=== PATIENT | male | born 1955 | race Caucasian/White ===

== ENCOUNTER 2016-12-11 11:41 | Emergency (ER) | payer OTHER ==
[2016-12-11] MEDS ORDERED: hydrALAZINE HCL 20 MG/ML 1 ML VIAL IVP STA (12:18)
[2016-12-11] MEDS ORDERED: SODIUM CHLORIDE 0.9% 1,000 ML IV STA (12:18)
--- NOTE | 2016-12-11 12:20 | ED ---
General Adult HPI - General Chief complaint: Arrhythmia/Palpitations Stated complaint: HEAD, BLOOD PRESSURE Time Seen by Provider: 12/11/16 12:08 Source: patient, RN notes reviewed Mode of arrival: ambulatory Limitations: no limitations - History of Present Illness Initial comments: Patient is a 61-year-old male who presents emergency room today with a chief complaint of palpitations and headache with elevated blood pressure. Patient does admit that he's had these symptoms on and off over the last 6 months. His and following up with family doctor and rides supervisor. Started on blood pressure medication of atenolol 50 mg that he takes at night. States he did take it last night. States he woke up approximately 2 AM with feeling palpitations in his upper chest and neck area. States he was able to fall back asleep but would wake up multiple times throughout the night with similar symptoms. States woke up this morning at bedside states that his face was beet red and could see the palpitations in his cheek. Patient does admit that symptoms slightly improved at this time. Does admit to a "dull" type headache to the front of his head. States similar to headaches that he's had off-and-on with this not feeling palpitations at this time. He denies any other complaints or symptoms currently. Patient denies any recent fever, chills, shortness of breath, back pain, abdominal pain, nausea or vomiting, numbness or tingling, dysuria or hematuria, constipation or diarrhea, visual changes, or any other complaints. - Related Data Home Medications Medication Instructions Recorded Confirmed Atenolol [Tenormin] 50 mg PO HS 12/11/16 12/11/16 Biotin 5 mg PO 12/11/16 12/11/16 Cod Liver Oil 1 cap PO HS 12/11/16 12/11/16 Garlic 1 tab PO HS 12/11/16 12/11/16 Multivitamin [Men's Multi-Vitamin] 1 tab PO 12/11/16 12/11/16 Vitamin C 600 mg PO 12/11/16 12/11/16 Allergies Allergy/AdvReac Type Severity Reaction Status Date / Time No Known Allergies Allergy Verified 12/11/16 13:16 Review of Systems ROS Statement: Those systems with pertinent positive or pertinent negative responses have been documented in the HPI. ROS Other: All systems not noted in ROS Statement are negative. Past Medical History Past Medical History: Hypertension History of Any Multi-Drug Resistant Organisms: None Reported Past Surgical History: Orthopedic Surgery Additional Past Surgical History / Comment(s): rt knee Past Psychological History: No Psychological Hx Reported Smoking Status: Never smoker Past Alcohol Use History: Daily Past Drug Use History: None Reported General Exam - General Exam Comments Initial Comments: General: The patient is awake and alert, in no distress, and does not appear acutely ill. Eye: Pupils are equal, round and reactive to light, extra-ocular movements are intact. No nystagmus. There is normal conjunctiva bilaterally. No signs of icterus. Ears, nose, mouth and throat: There are moist mucous membranes and no oral lesions. Neck: The neck is supple, there is no tenderness or JVD. Cardiovascular: There is a regular rate and rhythm. No murmur, rub or gallop is appreciated. Respiratory: Lungs are clear to auscultation, respirations are non-labored, breath sounds are equal. No wheezes, stridor, rales, or rhonchi. Gastrointestinal: Soft, non-distended, non-tender abdomen without masses or organomegaly noted. There is no rebound or guarding present. No CVA tenderness. Bowel sounds are unremarkable. Musculoskeletal: Normal ROM, no tenderness. Strength 5/5. Sensation intact. Pulses equal bilaterally 2+. Neurological: A&O x 3. CN II-XII intact, There are no obvious motor or sensory deficits. Coordination appears grossly intact. Speech is normal. Skin: Skin is warm and dry and no rashes or lesions are noted. Psychiatric: Cooperative, appropriate mood & affect, normal judgment. Limitations: no limitations Course Vital Signs 12/11/16 12/11/16 12/11/16 11:57 12:40 13:07 Temperature 98.0 F Pulse Rate 67 63 64 Respiratory 20 18 16 Rate Blood Pressure 181/104 147/81 136/67 O2 Sat by Pulse 98 98 98 Oximetry EKG Findings - EKG Comments: EKG Findings:: EKG performed at 1213: Shows sinus bradycardia at 58 bpm. SD interval 184. QRS 104. QT/QTc 448/439. No acute ST changes. Medical Decision Making - Medical Decision Making Case discussed in detail with attending physician Dr. Hill. Patient labs reviewed and are unremarkable. Patient reexamined at this time shows no signs of distress. Patient's blood pressure improved after hydralazine here in emergency room. Patient asymptomatic at this time. States feels well to be discharged home. Patient advised follow-up with his family doctor and rides supervisor tomorrow. Advised return to emergency room if any symptoms increase or worsen or for any other concerns. - Lab Data Result diagrams: 12/11/16 12:36 12/11/16 12:36 Lab Results 12/11/16 12/11/16 12/11/16 Range/Units 12:36 12:36 12:36 WBC 5.6 (3.8-10.6) k/uL RBC 4.86 (4.30-5.90) m/uL Hgb 14.5 (13.0-17.5) gm/dL Hct 44.2 (39.0-53.0) % MCV 90.9 (80.0-100.0) fL MCH 29.8 (25.0-35.0) pg MCHC 32.8 (31.0-37.0) g/dL RDW 12.6 (11.5-15.5) % Plt Count 173 (150-450) k/uL Neutrophils % 56 % Lymphocytes % 33 % Monocytes % 5 % Eosinophils % 3 % Basophils % 1 % Neutrophils # 3.2 (1.3-7.7) k/uL Lymphocytes # 1.9 (1.0-4.8) k/uL Monocytes # 0.3 (0-1.0) k/uL Eosinophils # 0.2 (0-0.7) k/uL Basophils # 0.0 (0-0.2) k/uL PT (9.0-12.0) sec INR (<1.1) APTT (22.0-30.0) sec Sodium 140 (137-145) mmol/L Potassium 4.5 (3.5-5.1) mmol/L Chloride 105 (98-107) mmol/L Carbon Dioxide 25 (22-30) mmol/L Anion Gap 10 mmol/L BUN 15 (9-20) mg/dL Creatinine 0.75 (0.66-1.25) mg/dL Est GFR (MDRD) Af Amer >60 (>60 ml/min/1.73 sqM) Est GFR (MDRD) Non-Af >60 (>60 ml/min/1.73 sqM) Glucose 93 (74-99) mg/dL Calcium 8.6 (8.4-10.2) mg/dL Magnesium 1.9 (1.6-2.3) mg/dL Total Bilirubin 0.6 (0.2-1.3) mg/dL AST 22 (17-59) U/L ALT 39 (21-72) U/L Alkaline Phosphatase 95 (38-126) U/L Total Creatine Kinase 89 (55-170) U/L CK-MB (CK-2) 1.2 (0.0-2.4) ng/mL CK-MB (CK-2) Rel Index 1.3 Troponin I <0.012 (0.000-0.034) ng/mL Total Protein 7.3 (6.3-8.2) g/dL Albumin 4.0 (3.5-5.0) g/dL 12/11/16 Range/Units 12:36 WBC (3.8-10.6) k/uL RBC (4.30-5.90) m/uL Hgb (13.0-17.5) gm/dL Hct (39.0-53.0) % MCV (80.0-100.0) fL MCH (25.0-35.0) pg MCHC (31.0-37.0) g/dL RDW (11.5-15.5) % Plt Count (150-450) k/uL Neutrophils % % Lymphocytes % % Monocytes % % Eosinophils % % Basophils % % Neutrophils # (1.3-7.7) k/uL Lymphocytes # (1.0-4.8) k/uL Monocytes # (0-1.0) k/uL Eosinophils # (0-0.7) k/uL Basophils # (0-0.2) k/uL PT 10.6 (9.0-12.0) sec INR 1.0 (<1.1) APTT 23.9 (22.0-30.0) sec Sodium (137-145) mmol/L Potassium (3.5-5.1) mmol/L Chloride (98-107) mmol/L Carbon Dioxide (22-30) mmol/L Anion Gap mmol/L BUN (9-20) mg/dL Creatinine (0.66-1.25) mg/dL Est GFR (MDRD) Af Amer (>60 ml/min/1.73 sqM) Est GFR (MDRD) Non-Af (>60 ml/min/1.73 sqM) Glucose (74-99) mg/dL Calcium (8.4-10.2) mg/dL Magnesium (1.6-2.3) mg/dL Total Bilirubin (0.2-1.3) mg/dL AST (17-59) U/L ALT (21-72) U/L Alkaline Phosphatase (38-126) U/L Total Creatine Kinase (55-170) U/L CK-MB (CK-2) (0.0-2.4) ng/mL CK-MB (CK-2) Rel Index Troponin I (0.000-0.034) ng/mL Total Protein (6.3-8.2) g/dL Albumin (3.5-5.0) g/dL Disposition Clinical Impression: HTN (hypertension), Palpitations Disposition: HOME SELF-CARE Condition: Good Instructions: Palpitations (ED) Additional Instructions: Please follow-up family doctor and rides supervisor tomorrow as discussed. Please return to emergency room if any symptoms increase or worsen or for any other concerns. Time of Disposition: 13:46
--- NOTE | 2016-12-11 12:49 | XR ---
EXAMINATION TYPE: XR chest 2V DATE OF EXAM: 12/11/2016 12:46 PM HISTORY: Chest Pain. REFERENCE: NONE. FINDINGS: There are mild senescent changes throughout the lungs. There is no evidence of pneumonia or edema. The heart is not enlarged. Pleural spaces are clear. Note is made of degenerative changes within the spine. IMPRESSION: NO ACUTE INTRATHORACIC ABNORMALITY.
[2016-12-11 12:53] LABS: Basophils % (A) 1 %; CH 30.7; CHCM 33.9; Eosinophils # (A) 0.2 k/uL (0-0.7); Eosinophils % (A) 3 %; HCT 44.2 % (39.0-53.0); HDW 2.22; HGB 14.5 gm/dL (13.0-17.5); Luc # (Auto) 0.13; Luc % (Auto) 2; Lymphocytes # (A) 1.9 k/uL (1.0-4.8); Lymphocytes % (A) 33 %; MCH 29.8 pg (25.0-35.0); MCHC 32.8 g/dL (31.0-37.0); MCV 90.9 fL (80.0-100.0); Mean Platelet Volume 7.7; Monocytes # (A) 0.3 k/uL (0-1.0); Monocytes % (A) 5 %; Neutrophils # (A) 3.2 k/uL (1.3-7.7); Neutrophils % (A) 56 %; RBC 4.86 m/uL (4.30-5.90); RDW 12.6 % (11.5-15.5); WBC 5.6 k/uL (3.8-10.6); WBC (Perox) 5.55
[2016-12-11 13:01] LABS: ALT 39 U/L (21-72); AST 22 U/L (17-59); Alkaline Phosphatase 95 U/L (38-126); Anion Gap 10 mmol/L; Blood Urea Nitrogen 15 mg/dL (9-20); Calcium 8.6 mg/dL (8.4-10.2); Carbon Dioxide 25 mmol/L (22-30); Chloride 105 mmol/L (98-107); Glucose 93 mg/dL (74-99); Magnesium 1.9 mg/dL (1.6-2.3); Non-African American GFR(MDRD) >60 (>60 ml/min/1.73 sqM); Potassium 4.5 mmol/L (3.5-5.1); Sodium 140 mmol/L (137-145); Total Bilirubin 0.6 mg/dL (0.2-1.3); Total Protein 7.3 g/dL (6.3-8.2)
[2016-12-11 13:05] LABS: Partial Thromboplastin Time 23.9 sec (22.0-30.0); Prothrombin Time 10.6 sec (9.0-12.0)
[2016-12-11 13:08] VITALS: BP 136/67; PULSE 64; RESP 16
[2016-12-11 13:20] LABS: Creatine Kinase 89 U/L (55-170)
[2016-12-11 13:33] LABS: Creatine Kinase MB 1.2 ng/mL (0.0-2.4); Troponin I <0.012 ng/mL (0.000-0.034)
[2016-12-11 14:00] VITALS: TEMP 98
== END 2016-12-11 13:59 | disposition home or self-care (01) ==
LOC: EC 11:41
DX: I10 Essential (primary) hypertension (principal); R00.2 Palpitations; Z79.899 Other long term (current) drug therapy
CPT/HCPCS: 36415; 93005; 80053; 82550; 82553; 83735; 84484; 85025; 85610; 85730; 71020; 99285; 96374; 96361; J0360

== ENCOUNTER 2016-12-12 16:57 | Observation (INO) | payer OTHER ==
[2016-12-12] MEDS ORDERED: LORazepam 2 MG/ML SYRINGE IV PRN ×3 (18:50)
[2016-12-12] MEDS: SODIUM CHLORIDE 0.9% 1,000 ML IV SCH (18:59)
[2016-12-12 19:13] LABS: Basophils # (A) 0.1 k/uL (0-0.2); Basophils % (A) 1 %; CH 30.5; CHCM 33.2; Eosinophils # (A) 0.2 k/uL (0-0.7); Eosinophils % (A) 3 %; HCT 44.6 % (39.0-53.0); HDW 2.19; HGB 14.2 gm/dL (13.0-17.5); Luc # (Auto) 0.17; Luc % (Auto) 3; Lymphocytes # (A) 2.3 k/uL (1.0-4.8); Lymphocytes % (A) 36 %; MCH 29.3 pg (25.0-35.0); MCHC 31.8 g/dL (31.0-37.0); Monocytes # (A) 0.3 k/uL (0-1.0); Monocytes % (A) 4 %; Neutrophils # (A) 3.5 k/uL (1.3-7.7); Neutrophils % (A) 54 %; RBC 4.85 m/uL (4.30-5.90); RDW 12.8 % (11.5-15.5); WBC 6.5 k/uL (3.8-10.6); WBC (Perox) 6.65
[2016-12-12 19:39] LABS: Anion Gap 12 mmol/L; Blood Urea Nitrogen 14 mg/dL (9-20); Calcium 9.3 mg/dL (8.4-10.2); Carbon Dioxide 26 mmol/L (22-30); Chloride 105 mmol/L (98-107); Glucose 94 mg/dL (74-99); Magnesium 2.1 mg/dL (1.6-2.3); Non-African American GFR(MDRD) >60 (>60 ml/min/1.73 sqM); Potassium 4.3 mmol/L (3.5-5.1); Sodium 143 mmol/L (137-145)
[2016-12-12] MEDS: MULTIVITAMINS, THERA 1 EACH TAB PO SCH (20:10)
[2016-12-12] MEDS ORDERED: ATENOLOL 50 MG TAB PO SCH (21:00)
[2016-12-13 06:03] LABS: Basophils % (A) 1 %; CH 30.4; CHCM 33.3; Eosinophils # (A) 0.2 k/uL (0-0.7); Eosinophils % (A) 4 %; HCT 41.7 % (39.0-53.0); HGB 13.6 gm/dL (13.0-17.5); Luc # (Auto) 0.15; Luc % (Auto) 3; Lymphocytes # (A) 1.9 k/uL (1.0-4.8); Lymphocytes % (A) 33 %; MCH 29.9 pg (25.0-35.0); MCHC 32.6 g/dL (31.0-37.0); MCV 91.5 fL (80.0-100.0); Mean Platelet Volume 7.3; Monocytes # (A) 0.4 k/uL (0-1.0); Monocytes % (A) 7 %; Neutrophils % (A) 53 %; RBC 4.56 m/uL (4.30-5.90); RDW 12.7 % (11.5-15.5); WBC 5.6 k/uL (3.8-10.6)
[2016-12-13 06:21] LABS: Anion Gap 8 mmol/L; Blood Urea Nitrogen 12 mg/dL (9-20); Calcium 8.8 mg/dL (8.4-10.2); Carbon Dioxide 25 mmol/L (22-30); Chloride 107 mmol/L (98-107); Glucose 98 mg/dL (74-99); Non-African American GFR(MDRD) >60 (>60 ml/min/1.73 sqM); Potassium 4.3 mmol/L (3.5-5.1); Sodium 140 mmol/L (137-145)
[2016-12-13] MEDS: SODIUM CHLORIDE 0.9% 1,000 ML IV SCH (09:41)
--- NOTE | 2016-12-13 10:09 | ECHOF ---
Referral Reason:heart palpatations MEASUREMENTS -------- HEIGHT: 198.1 cm WEIGHT: 131.1 kg BP: 129/71 RVIDd: 3.7 cm (< 3.3) IVSd: 1.2 cm (0.6 - 1.1) LVIDd: 5.2 cm (3.9 - 5.3) LVPWd: 1.2 cm (0.6 - 1.1) IVSs: 1.7 cm LVIDs: 3.7 cm LVPWs: 1.7 cm LA Diam: 4.1 cm (2.7 - 3.8) LAESV Index (A-L): 26.20 ml/m Ao Diam: 3.1 cm (2.0 - 3.7) AV Cusp: 2.4 cm (1.5 - 2.6) LA Diam: 3.7 cm (2.7 - 3.8) MV EXCURSION: 21.085 mm (> 18.000) MV EF SLOPE: 99 mm/s (70 - 150) EPSS: 0.8 cm MV E Tejas: 0.67 m/s MV DecT: 191 ms MV A [place]: 0.88 m/s MV E/A Ratio: 0.76 RAP: 5.00 mmHg RVSP: 18.84 mmHg FINDINGS -------- Resting bradycardia (HR<60bpm). This was a technically good study. There is borderline concentric left ventricular hypertrophy. Overall left ventricular systolic function is normal with, an EF between 55 - 60 %. The right ventricle is normal in size. Normal LA size by volume 22+/-6 ml/m2. The right atrium is normal in size. Aortic valve is trileaflet and is mildly thickened. The mitral valve leaflets are mildly thickened. Mild mitral annular calcification present. There is trace mitral regurgitation. Trace tricuspid regurgitation present. Right ventricular systolic pressure is normal at < 35 mmHg. Trace/mild (physiologic) pulmonic regurgitation. The aortic root size is normal. Normal inferior vena cava with normal inspiratory collapse consistent with estimated right atrial pressure of 5 mmHg. There is no pericardial effusion. CONCLUSIONS -------- 1. Resting bradycardia (HR<60bpm). 2. Mild mitral annular calcification present. 3. There is trace mitral regurgitation. 4. Trace tricuspid regurgitation present. 5. Right ventricular systolic pressure is normal at < 35 mmHg. 6. Trace/mild (physiologic) pulmonic regurgitation. 7. The aortic root size is normal. 8. Normal inferior vena cava with normal inspiratory collapse consistent with estimated right atrial pressure of 5 mmHg. 9. There is no pericardial effusion. 10. This was a technically good study. 11. There is borderline concentric left ventricular hypertrophy. 12. Overall left ventricular systolic function is normal with, an EF between 55 - 60 %. 13. The right ventricle is normal in size. 14. Normal LA size by volume 22+/-6 ml/m2. 15. The right atrium is normal in size. 16. Aortic valve is trileaflet and is mildly thickened. 17. The mitral valve leaflets are mildly thickened. CONTENT COORDINATOR: Ezequiel Velasquez RDCS
[2016-12-13] MEDS: THIAMINE 100 MG TAB PO SCH (11:45)
[2016-12-13] MEDS: FOLIC ACID 1 MG TAB PO SCH (11:45)
--- NOTE | 2016-12-13 12:39 | P.CRDCN ---
History of Present Illness Consult date: 12/13/16 Requesting physician: Bernice Regan Reason for Consult (text): Palpitations Consult reason: hypertension Chief complaint: Palpitations and hypertension History of present illness: This is a pleasant 61-year-old gentleman with history of hypertension , who presents to the hospital with symptoms of palpitations with associated headache and high blood pressure. According to the patient, he's been experiencing intermittent palpitations and fluctuating blood pressure for over 6 months now. He was initially started on lisinopril by his primary care doctor , this was changed recently to atenolol by Dr. Oconnell. In spite of that, patient continued to have intermittent significantly elevated blood pressure. He states that he wakes up in the middle of the night with palpitations and pounding in his chest. Usually during the day he doesn't notice it at all, but almost every night he wakes up because of palpitations. He had a recent stress echocardiographic study done along with a regular echo, and event monitor at the office. does have history of hypertension, no hyperlipidemia, no diabetes, he's a nonsmoker, he does drink 4-5 glasses of wine a night. EKG on arrival here showed normal sinus rhythm with no significant changes. Repeat EKG performed this morning showed a sinus bradycardia with no acute changes. Rhythm strips show normal sinus rhythm with occasional PACs. No acute changes were noted. Chest x-ray does not reveal any acute intrathoracic abnormality. Laboratory data reviewed, WBC 5.6, hemoglobin 13.6, sodium 140, potassium 4.3, BUN 12, creatinine 0.7. Troponin less than 0.012. TSH 1.9. Blood pressure this morning 143/70. Heart rate in the 50s. Past Medical History Past Medical History: Hypertension History of Any Multi-Drug Resistant Organisms: None Reported Past Surgical History: Orthopedic Surgery Additional Past Surgical History / Comment(s): rt knee in 1976; coloscopy 2013 Past Anesthesia/Blood Transfusion Reactions: No Reported Reaction Past Psychological History: No Psychological Hx Reported Smoking Status: Never smoker Past Alcohol Use History: Daily Past Drug Use History: None Reported - Past Family History Mother Additional Family Medical History / Comment(s): cdiff, breast cancer, CABG 1999 , septic shock, Father Family Medical History: AFIB, AICD/Pacemaker Additional Family Medical History / Comment(s): mac degeneration Medications and Allergies Home Medications Medication Instructions Recorded Confirmed Type Atenolol [Tenormin] 50 mg PO HS 12/11/16 12/12/16 History Biotin 5 mg PO 12/11/16 12/12/16 History Cod Liver Oil 1 cap PO 12/11/16 12/12/16 History Garlic 1 tab PO HS 12/11/16 12/12/16 History Multivitamin [Men's Multi-Vitamin] 1 tab PO 12/11/16 12/12/16 History Vitamin C 600 mg PO 12/11/16 12/12/16 History Allergies Allergy/AdvReac Type Severity Reaction Status Date / Time No Known Allergies Allergy Verified 12/12/16 19:04 Physical Exam Vitals: Vital Signs Temp Pulse Resp BP Pulse Ox 12/13/16 11:30 97.5 F L 50 L 14 143/70 96 12/13/16 08:35 48 L 14 12/13/16 07:33 97.4 F L 48 L 14 136/68 97 12/13/16 04:00 52 L 18 129/71 97 12/13/16 00:00 54 L 18 120/68 99 12/12/16 20:00 97.7 F 53 L 18 131/68 97 12/12/16 18:52 97.8 F 55 L 18 144/77 97 Intake and Output 12/12/16 12/13/16 12/13/16 22:59 06:59 14:59 Intake Total 650 Balance 650 Intake: Intake, IV Titration 450 Amount Sodium Chloride 0.9% 1, 450 000 ml @ 75 mls/hr IV . [id number] [facility] Rx#:[id number] Oral 200 Other: # Voids 1 1 # Bowel Movements 0 Weight 131.4 kg 129.8 kg 131 kg Patient Weight 12/14/16 06:59 Weight 131 kg PHYSICAL EXAMINATION: HEENT: Head is atraumatic, normocephalic. Pupils equal, round. Neck is supple. There is no elevated jugular venous pressure. HEART EXAMINATION: Heart S1, S2 normal. No murmur or gallop heard. CHEST EXAMINATION: Lungs are clear to auscultation and precussion. No chest wall tenderness is noted on palpation or with deep breathing. ABDOMEN: Soft, nontender. Bowel sounds are heard. No organomegaly noted. EXTREMITIES: 2+ peripheral pulses with no evidence of peripheral edema and no calf tenderness noted. NEUROLOGIC patient is awake, alert and oriented -3. . Results 12/13/16 05:41 12/13/16 05:41 CBC 12/12/16 12/13/16 Range/Units 18:24 05:41 WBC 6.5 5.6 (3.8-10.6) k/uL RBC 4.85 4.56 (4.30-5.90) m/uL Hgb 14.2 13.6 (13.0-17.5) gm/dL Hct 44.6 41.7 (39.0-53.0) % Plt Count 179 164 (150-450) k/uL Comprehensive Metabolic Panel 12/12/16 12/13/16 Range/Units 18:24 05:41 Sodium 143 140 (137-145) mmol/L Potassium 4.3 4.3 (3.5-5.1) mmol/L Chloride 105 107 (98-107) mmol/L Carbon Dioxide 26 25 (22-30) mmol/L BUN 14 12 (9-20) mg/dL Creatinine 0.80 0.70 (0.66-1.25) mg/dL Glucose 94 98 (74-99) mg/dL Calcium 9.3 8.8 (8.4-10.2) mg/dL Current Medications Generic Name Dose Route Start Last Admin Trade Name Freq PRN Reason Stop Dose Admin Atenolol 50 mg 12/12/16 21:00 12/12/16 20:10 Tenormin PO 50 mg HS BAN Administration Folic Acid 1 mg 12/13/16 12:00 12/13/16 11:45 Folic Acid PO Not Given DAILY@1200 BAN Lorazepam 1 mg 12/12/16 18:50 Ativan IV Q2HR PRN CIWA 8 or 9 Lorazepam 1 mg 12/12/16 18:50 Ativan IV Q1HR PRN CIWA 10 to 15 Lorazepam 2 mg 12/12/16 18:50 Ativan IV Q1HR PRN CIWA 16 or higher Multivitamins 1 each 12/12/16 21:00 12/12/16 20:10 Theragran PO 1 each HS BAN Administration Thiamine HCl 100 mg 12/13/16 12:00 12/13/16 11:45 Vitamin B-1 PO Not Given DAILY@1200 BAN Intake and Output 12/12/16 12/13/16 12/13/16 22:59 06:59 14:59 Intake Total 650 Balance 650 Intake: Intake, IV Titration 450 Amount Sodium Chloride 0.9% 1, 450 000 ml @ 75 mls/hr IV . [id number] BAN Rx#:[id number] Oral 200 Other: # Voids 1 1 # Bowel Movements 0 Weight 131.4 kg 129.8 kg 131 kg Patient Weight 12/14/16 06:59 Weight 131 kg 12/13/16 05:41 12/13/16 05:41 EKG Interpretations (text) EKG shows sinus rhythm this bradycardia with no acute changes. Assessment and Plan Plan: Assessment and plan #1 symptoms of palpitations with flushing sensation and elevated blood pressure. EKG shows sinus bradycardia with occasional PACs. Blood pressure 143 /70. Patient did have recent stress echocardiographic study along with echo and event monitor in the office. #2 hypertension, on atenolol at home. Plan We will obtain report of echo, stress echo, and event monitor from the office done recently. Optimize blood pressure control. Further recommendations to follow. DNP note has been reviewed, I agree with a documented findings and plan of care. Patient was seen and examined.
[2016-12-13 16:57] VITALS: RESP 18
--- NOTE | 2016-12-13 17:34 | HP ---
DATE OF ADMISSION: 12/12/2016 Patient is a 61-year-old pleasant gentleman who came in with complaints of palpitations, headache and elevated blood pressure. Patient's symptoms lasted for 6 hour on Monday ton, and patient's symptoms resolved. Patient has had similar problems in the past. Patient had an event monitor which was discontinued recently. Cardiology is getting in touch with Dr. Reny Mckee's clinic to see if there are any significant events on the event monitor. Patient denied any chest pain. Patient denied diaphoresis, nausea, vomiting. Patient denied any fever or chills. Echocardiogram was done which was negative. Stress test results are to be obtained from Dr. Reny Mckee's clinic. Patient is on atenolol. Patient had similar problems in the past. EKG shows normal sinus rhythm with occasional sinus bradycardia and occasional PACs. Patient apparently had some events of these palpitations when he was on the event monitor. TSH and T4 are essentially within normal limits. REVIEW OF SYSTEMS: CONSTITUTIONAL: No fever, no malaise, no fatigue. HEENT: No recent visual problems or hearing problems. Denied any sore throat. CARDIOVASCULAR: As described in HPI. PULMONARY: No shortness of breath, no cough, no hemoptysis. GASTROINTESTINAL: No diarrhea, no nausea, no vomiting, no abdominal pain. Normoactive bowel sounds. NEUROLOGICAL: No headaches, no weakness, no numbness. HEMATOLOGICAL: Denies any bleeding or petechiae. GENITOURINARY: Denies any burning micturition, frequency, or urgency. MUSCULOSKELETAL/RHEUMATOLOGICAL: Denies any joint pain, swelling, or any muscle pain. ENDOCRINE: Denies any polyuria or polydipsia. The rest of the 14 point review of systems is negative. PAST MEDICAL HISTORY: 1. Hypertension. 2. Orthopedic surgery in the past. SOCIAL HISTORY: Denied any smoking, alcohol abuse or any drug abuse. FAMILY HISTORY: Mother had C difficile and breast cancer, CABG in 1999, septic shock. Father had atrial fibrillation, AICD and pacemaker, macular degeneration. HOME MEDICATIONS: 1. Atenolol. 2. Biotin. 3. Cod liver oil. 4. Garlic. 5. Multivitamin. 6. Vitamin C. ALLERGIES: NO KNOWN DRUG ALLERGIES. PHYSICAL EXAMINATION: VITAL SIGNS: Temperature 97.5, pulse of 50, respiratory rate of 14. Blood pressure is 143/70. Saturating at 96% on room air. GENERAL: The patient is alert and oriented x3, not in any acute distress. Well developed, well nourished. HEENT: Pupils are round and equally reacting to light. EOMI. No scleral icterus. No conjunctival pallor. Normocephalic, atraumatic. No pharyngeal erythema. No thyromegaly. CARDIOVASCULAR: S1 and S2 present. No murmurs, rubs, or gallops. PULMONARY: Chest is clear to auscultation, no wheezing or crackles. ABDOMEN: Soft, nontender, nondistended, normoactive bowel sounds. No palpable organomegaly. MUSCULOSKELETAL: No joint swelling or deformity. EXTREMITIES: No cyanosis, clubbing, or pedal edema. NEUROLOGICAL: Gross neurological examination did not reveal any focal deficits. SKIN: No rashes. LABORATORY DATA: CBC, CMP are essentially within normal limits. ASSESSMENT AND PLAN: 1. Palpitations; unsure of the exact etiology. Echocardiogram essentially negative. Awaiting cardiology recommendations. They are recommending one more day of monitoring. They are waiting for the results of the event monitor. Depending on that, they may decide to start him on a loop recorder for long-term monitoring. 2. Hypertension. Continue with atenolol. 3. Obesity. Patient will need a sleep study as an outpatient.
[2016-12-13] MEDS: MULTIVITAMINS, THERA 1 EACH TAB PO SCH (20:41)
[2016-12-13] MEDS ORDERED: amLODIPine 5 MG TAB PO SCH (21:00)
[2016-12-14] MEDS ORDERED: ATENOLOL 25 MG TAB PO SCH (09:00)
[2016-12-14 10:10] VITALS: PULSE 59
[2016-12-14 11:33] VITALS: BP 129/76; TEMP 97.6
[2016-12-14] MEDS: FOLIC ACID 1 MG TAB PO SCH (13:09)
[2016-12-14] MEDS: THIAMINE 100 MG TAB PO SCH (13:10)
--- NOTE | 2016-12-14 14:25 | DS ---
DATE OF ADMISSION: 12/12/2016 DATE OF DISCHARGE: 12/14/2016 A 61-year-old admitted with palpitations, headache and patient was evaluated by Cardiology. Patient had a recent event monitor except for PVCs, did not show much and because of his mild sinus bradycardia and PVC's, Cardiology is decreasing the dose of atenolol starting on much amlodipine and patient will be discharged today. Patient was seen and examined on the day of discharge. Vitals are stable. PHYSICAL EXAMINATION: GENERAL: The patient is alert and oriented x3, not in any acute distress. Well developed, well nourished. HEENT: Pupils are round and equally reacting to light. EOMI. No scleral icterus. No conjunctival pallor. Normocephalic, atraumatic. No pharyngeal erythema. No thyromegaly. CARDIOVASCULAR: S1 and S2 present. No murmurs, rubs, or gallops. PULMONARY: Chest is clear to auscultation, no wheezing or crackles. ABDOMEN: Soft, nontender, nondistended, normoactive bowel sounds. No palpable organomegaly. MUSCULOSKELETAL: No joint swelling or deformity. EXTREMITIES: No cyanosis, clubbing, or pedal edema. NEUROLOGICAL: Gross neurological examination did not reveal any focal deficits. SKIN: No rashes. FINAL DIAGNOSES: 1. Symptoms of palpation without any significant abnormality on the event monitor and superannuation clerk overnight. 2. Hypertension. 3. Obesity. Patient will be discharged today. DISCHARGE DIET: Cardiac. Activity as tolerated. Please refer to depart summary for the list of discharge medications. Patient will follow with Dr. Blessing Roger in 12/21/2016 at 3:[address] Reny Mckee in one week.
--- NOTE | 2016-12-14 14:53 | P.PN ---
Subjective Principal diagnosis: Palpitations his is a pleasant 61-year-old gentleman with history of hypertension, who presents to the hospital with symptoms of palpitations with associated headache and high blood pressure. According to the patient, he's been experiencing intermittent palpitations and fluctuating blood pressure for over 6 months now. He was initially started on lisinopril by his primary care doctor , this was changed recently to atenolol by Dr. Oconnell. In spite of that, patient continued to have intermittent significantly elevated blood pressure. He states that he wakes up in the middle of the night with palpitations and pounding in his chest. Usually during the day he doesn't notice it at all, but almost every night he wakes up because of palpitations. He had a recent stress echocardiographic study done along with a regular echo, and event monitor at the office. 30 day event monitor was reviewed, no significant arrhythmias were noted. On presentation here patient was found however to be bradycardic, dose of atenolol was cut in half. Patient was started on Norvasc for blood pressure. Blood pressure today 128/76 with a heart rate of 56. Patient denies any further palpitations, no arrhythmias were noted on the monitor. Objective - Vital Signs Vital signs: Vital Signs Temp 97.6 F 12/14/16 11:31 Pulse 59 L 12/14/16 11:31 Resp 18 12/14/16 11:31 BP 129/76 12/14/16 11:31 Pulse Ox 97 12/14/16 11:31 Intake & Output 12/13/16 12/14/16 12/14/16 18:59 06:59 18:59 Intake Total 400 650 118 Output Total 200 Balance 200 650 118 Weight 131 kg 128.3 kg Intake: Intake, IV Titration 300 Amount Sodium Chloride 0.9% 1, 300 000 ml @ 75 mls/hr IV . [id number] [facility] Rx#:[id number] Oral 100 650 118 Output: Urine 200 Other: Voiding Method Toilet Urinal # Voids 1 1 1 # Bowel Movements 0 - Exam PHYSICAL EXAMINATION: HEENT: Head is atraumatic, normocephalic. Pupils equal, round. Neck is supple. There is no elevated jugular venous pressure. HEART EXAMINATION: Heart S1, S2 normal. No murmur or gallop heard. CHEST EXAMINATION: Lungs are clear to auscultation and precussion. No chest wall tenderness is noted on palpation or with deep breathing. ABDOMEN: Soft, nontender. Bowel sounds are heard. No organomegaly noted. EXTREMITIES: 2+ peripheral pulses with no evidence of peripheral edema and no calf tenderness noted. NEUROLOGIC patient is awake, alert and oriented -3. . - Labs CBC & Chem 7: 12/13/16 05:41 12/13/16 05:41 Assessment and Plan Plan: Assessment and plan #1 symptoms of palpitations with flushing sensation and elevated blood pressure. EKG shows sinus bradycardia with occasional PACs. #2 hypertension, Plan From cardiology's perspective, patient may be able to be discharged home today. We will continue atenolol 25 mg along with Norvasc 5 mg daily. A follow-up appointment will be made in the office post discharge. Event monitor did not reveal any significant arrhythmias. Patient has also been advised to decrease the amount of alcohol consumption. DNP note has been reviewed, I agree with a documented findings and plan of care. Patient was seen and examined.
== END 2016-12-14 13:46 | disposition home or self-care (01) ==
LOC: 6SEL 17:34
PROVIDERS: ADMIT Hospitalist; ATTEND Hospitalist
DX: R00.2 Palpitations (principal); R00.1 Bradycardia, unspecified; I10 Essential (primary) hypertension; E66.9 Obesity, unspecified; Z68.32 Body mass index [BMI] 32.0-32.9, adult; Z79.899 Other long term (current) drug therapy; Z82.49 Family history of ischemic heart disease and other diseases of the circulatory system
CPT/HCPCS: 93306; 80048 ×2; 84443; 83735 ×2; 85025 ×2; G0378 ×3; G0379; 93005

== ENCOUNTER 2023-09-19 09:58 | Day surgery (SDC) | payer OTHER ==
[2023-09-14 14:38] VITALS: BMI 39.9
[~2023-09-19 09:58] MED LIST: LACTATED RINGERS 1,000 ML IV SCH; LIDOCAINE 1% (10MG/ML) FOR IV START INTRADERMA PRN
[2023-09-19 11:05] VITALS: RESP 16; TEMP 97.3
[2023-09-19] MEDS ORDERED: LIDOCAINE 1% INJ 10MG/ML (20 ML MDV) ONE (11:43)
[2023-09-19] MEDS ORDERED: PROPOFOL 10 MG/ML 20 ML VIAL IV ONE (11:43)
--- NOTE | 2023-09-19 12:02 | P.PCN ---
Date of Procedure: 09/19/23 Procedure(s) Performed: BRIEF HISTORY: Patient is a 68-year-old pleasant white female scheduled for an elective colonoscopy as a part of screening for colon cancer. PROCEDURE PERFORMED: Colonoscopy. PREOPERATIVE DIAGNOSIS: Screening for colon cancer. IV sedation per Anesthesia. PROCEDURE: After informed consent was obtained, the patient, was brought into the endoscopy unit. IV sedation was administered by Anesthesia under continuous monitoring. Digital rectal examination was normal. Initially the Olympus CF-160 flexible video colonoscope was then inserted in the rectum, gradually advanced into the cecum without any difficulty. Careful examination was performed as the scope was gradually being withdrawn. Ileocecal valve and the appendiceal orifice were visualized and appeared normal. Prep was excellent. Mucosa of the cecum, ascending colon, transverse colon, descending colon, sigmoid colon, and rectum appeared normal. At her sigmoid diverticulosis. Retroflexion was performed in the rectum and no lesions were seen. The patient tolerated the procedure well. IMPRESSION: Normal-appearing colon from rectum to cecum with no evidence of colorectal neoplasia. RECOMMENDATIONS: Findings of this examination were discussed with the patient as well as his family. He was advised to have a repeat screening colonoscopy in 10 years..
[2023-09-19 12:47] VITALS: BP 109/76; PULSE 71
== END 2023-09-19 12:44 | disposition home or self-care (01) ==
LOC: ORWHC2ENDO 09:58
PROVIDERS: ATTEND Internal Medicine Gastroenterology
DX: Z12.11 Encounter for screening for malignant neoplasm of colon (principal); I10 Essential (primary) hypertension; E78.5 Hyperlipidemia, unspecified; Z79.899 Other long term (current) drug therapy; Z79.82 Long term (current) use of aspirin
CPT/HCPCS: J2001; J2704; G0121

== ENCOUNTER 2024-06-16 09:25 | Inpatient (IN) | payer OTHER, MEDICARE ==
--- NOTE | 2024-06-16 09:44 | ED ---
General Adult HPI - General Chief complaint: Shortness of Breath Stated complaint: SOB Time Seen by Provider: 06/16/24 09:30 Source: patient, RN notes reviewed, old records reviewed Mode of arrival: ambulatory Limitations: no limitations - History of Present Illness Initial comments: This is a 69-year-old male who presents to the emergency department complaining of dyspnea. Patient states it has been ongoing intermittently for a while. Patient states however the last couple of days anytime he seems to exert himself he is instantly short of breath and starts to sweat. Patient [place] any chest pain patient denies feeling any palpitations. Patient denies any fever chills or cough. Patient states that even in bed sometimes he wakes up and he does a little bit of moving around he gets up to go to the bathroom he is extremely short of breath. Patient denies any abdominal pain patient is nausea vomiting diarrhea. - Related Data Home Medications Medication Instructions Recorded Confirmed Biotin 5 mg PO HS 12/11/16 09/14/23 Garlic 1 tab PO HS 12/11/16 09/14/23 Multivitamin [Men's Multi-Vitamin] 1 tab PO HS 12/11/16 09/14/23 Aspirin 81 mg PO DAILY 09/14/23 09/19/23 Losartan/Hydrochlorothiazide 1 tab PO DAILY 09/14/23 09/19/23 [Losartan-Hctz 100-25 mg Tab] Magnesium 400 mg PO DAILY 09/14/23 09/14/23 [place]-3/Dha/Epa/Fish Oil [Fish Oil 1 each PO DAILY 09/14/23 09/14/23 1,000 mg Softgel] Rosuvastatin [Crestor] 10 mg PO DAILY 09/14/23 09/19/23 Previous Rx's Medication Instructions Recorded atenoloL [Tenormin] 25 mg PO DAILY #30 tab 12/14/16 Allergies Allergy/AdvReac Type Severity Reaction Status Date / Time No Known Allergies Allergy Verified 06/16/24 09:28 Review of Systems ROS Statement: Those systems with pertinent positive or pertinent negative responses have been documented in the HPI. ROS Other: All systems not noted in ROS Statement are negative. Past Medical History Past Medical History: Hyperlipidemia, Hypertension Additional Past Medical History / Comment(s): colonoscopy History of Any Multi-Drug Resistant Organisms: None Reported Past Surgical History: Joint Replacement, Orthopedic Surgery Additional Past Surgical History / Comment(s): rt knee in 1976; coloscopy 2013 Past Anesthesia/Blood Transfusion Reactions: No Reported Reaction Additional Past Anesthesia/Blood Transfusion Reaction / Comment(s): no blood transfusion Past Psychological History: No Psychological Hx Reported Smoking Status: Former smoker Past Alcohol Use History: Occasional Past Drug Use History: None Reported - Past Family History Mother Additional Family Medical History / Comment(s): cdiff, breast cancer, CABG 2000, septic shock, Father Family Medical History: AFIB, AICD/Pacemaker Additional Family Medical History / Comment(s): mac degeneration General Exam - General Exam Comments Initial Comments: GENERAL: Patient is well-developed and well-nourished. Patient is nontoxic and well- hydrated and is in mild distress. ENT: Neck is soft and supple. No significant lymphadenopathy is noted. Oropharynx is clear. Moist mucous membranes. Neck has full range of motion without eliciting any pain. EYES: The sclera were anicteric and conjunctiva were pink and moist. Extraocular movements were intact and pupils were equal round and reactive to light. Ey elids were unremarkable. PULMONARY: Unlabored respirations. Good breath sounds bilaterally. No audible rales rhonchi or wheezing was noted. CARDIOVASCULAR: Patient is tachycardic and irregular with occasional extrasystole ABDOMEN: Soft and nontender with normal bowel sounds. SKIN: Skin is clear with no lesions or rashes and otherwise unremarkable. NEUROLOGIC: Patient is alert and oriented x3. Cranial nerves II through XII are grossly intact. Motor and sensory are also intact. Normal speech, volume and content. Symmetrical smile. MUSCULOSKELETAL: Normal extremities with adequate strength and full range of motion. LYMPHATICS: No significant lymphadenopathy is noted PSYCHIATRIC: Normal psychiatric evaluation. Limitations: no limitations Course Vital Signs 06/16/24 06/16/24 06/16/24 09:26 11:15 11:45 Temperature 97.8 F Pulse Rate 119 H 102 H 108 H Respiratory 22 20 20 Rate Blood Pressure 151/104 135/94 O2 Sat by Pulse 98 96 97 Oximetry 06/16/24 12:00 Temperature Pulse Rate 80 Respiratory 18 Rate Blood Pressure 139/104 O2 Sat by Pulse 95 Oximetry Medical Decision Making - Medical Decision Making EKG is interpreted by myself read EKG shows atrial flutter at 117 bpm QRS is 152 QT interval 389 QTc is 459. Patient's EKG shows a flutter with an occasional PVC patient has a right bundle branch block Was pt. sent in by a medical professional or institution (, WILLIAM, [employer] RECOVERY TECHNICIAN, urgent care, hospital, or care home...) When possible be specific @ -No Did you speak to anyone other than the patient for history (EMS, parent, family, police, friend...)? What history was obtained from this source @ -No Did you review nursing and triage notes (agree or disagree)? Why? @ -I reviewed and agree with nursing and triage notes Were old charts reviewed (outside hosp., previous admission, EMS record, old EKG, old radiological studies, urgent care reports/EKG's, care home records)? Report findings @ -No old charts were reviewed Differential Diagnosis? @ -Differential Dyspnea: Coronary syndrome, arrhythmia, tamponade, asthma, COPD, pulmonary embolism, pneumonia, pneumothorax, pulmonary effusion, anaphylaxis, diabetic ketoacidosis, flailed chest, pulmonary contusion, diaphragmatic rupture, anemia, neuromuscular, this is not meant to be an all-inclusive list. EKG interpreted by me (3pts min.). @ -As above X-rays interpreted by me (1pt min.). @ -Chest x-ray shows a small pleural effusion CT interpreted by me (1pt min.). @ -CT of the brain shows no acute normality CT of the chest shows no PE U/S interpreted by me (1pt. min.). @ -None done What testing was considered but not performed or refused? (CT, X-rays, U/S, labs)? Why? @ -None What meds were considered but not given or refused? Why? @ -None Did you discuss the management of the patient with other professionals (professionals i.e. WILLIAM Flores, [employer] RECOV[employer] TECHNICIAN, lab, RT, psych nurse, social work administrator, admiralty lawyer, teacher, classification officer, case repairer)? Give summary @ -I spoke with And he recently accepted the patient I admitted the patient and motivating orders. I consulted cardiology Was smoking cessation discussed for >3mins.? @ -No Was critical care preformed (if so, how long)? @ -35-minute Were there social determinants of health that impacted care today? How? (Homelessness, low income, unemployed, alcoholism, drug addiction, transpo rtation, low edu. Level, literacy, decrease access to med. care, retirement, rehab)? @ -No Was there de-escalation of care discussed even if they declined (Discuss DNR or withdrawal of care, Hospice)? DNR status @ -No What co-morbidities impacted this encounter? (DM, HTN, Smoking, COPD, CAD, Cancer, CVA, ARF, Chemo, Hep., AIDS, mental health diagnosis, sleep apnea, morbid obesity)? @ -None Was patient admitted / discharged? Hospital course, mention meds given and route, prescriptions, significant lab abnormalities, going to OR and other pertinent info. @ -Patient's heart rate was hovering around [address] the patient on any Cardizem. I did start the patient on heparin. Patient will be admitted to Dr. Negron who with a consult to cardiology Undiagnosed new problem with uncertain prognosis? @ -No Drug Therapy requiring intensive monitoring for toxicity (Heparin, Nitro, Insulin, Cardizem)? @ -No Were any procedures done? @ -No Diagnosis/symptom? @ -Atrial flutter new onset Acute, or Chronic, or Acute on Chronic? @ -Acute Uncomplicated (without systemic symptoms) or Complicated (systemic symptoms)? @ -Complicated Side effects of treatment? @ -No Exacerbation, Progression, or Severe Exacerbation? @ -No Poses a threat to life or bodily function? How? (Chest pain, [place], [place], pneumonia, PE, COPD, DKA, ARF, appy, cholecystitis, CVA, Diverticulitis, Homicidal, Suicidal, threat to staff... and all critical care pts) @ -Yes this could lead to clots and possible stroke and morbidity or mortality - Lab Data Result diagrams: 06/16/24 10:06 06/16/24 10:06 Lab Results 06/16/24 06/16/24 06/16/24 Range/Units 10:06 10:06 10:06 WBC 9.5 (3.8-10.6) k/uL RBC 4.75 (4.30-5.90) m/uL Hgb 14.6 (13.0-17.5) gm/dL Hct 43.8 (39.0-53.0) % MCV 92.0 (80.0-100.0) fL MCH 30.7 (25.0-35.0) pg MCHC 33.3 (31.0-37.0) g/dL RDW 13.3 (11.5-15.5) % Plt Count 167 (150-450) k/uL MPV 7.8 Neutrophils % 75 % Lymphocytes % 19 % Monocytes % 4 % Eosinophils % 2 % Basophils % 0 % Neutrophils # 7.1 (1.3-7.7) k/uL Lymphocytes # 1.8 (1.0-4.8) k/uL Monocytes # 0.4 (0-1.0) k/uL Eosinophils # 0.1 (0-0.7) k/uL Basophils # 0.0 (0-0.2) k/uL PT 11.6 (10.0-12.5) sec INR 1.1 (<1.2) APTT 23.1 (22.0-30.0) sec D-Dimer 1.06 H (<0.60) mg/L FEU Sodium 139 (137-145) mmol/L Potassium 4.1 (3.5-5.1) mmol/L Chloride 106 (98-107) mmol/L Carbon Dioxide 24 (22-30) mmol/L Anion Gap 9 mmol/L BUN 17 (9-20) mg/dL Creatinine 0.75 (0.66-1.25) mg/dL Est GFR (CKD-EPI)AfAm >90 (>60 ml/min/1.73 sqM) Est GFR (CKD-EPI)NonAf >90 (>60 ml/min/1.73 sqM) Glucose 115 H (74-99) mg/dL Plasma Lactic Acid Александр (0.7-2.0) mmol/L Calcium 9.2 (8.4-10.2) mg/dL Magnesium 1.7 (1.6-2.3) mg/dL Total Bilirubin 1.4 H (0.2-1.3) mg/dL AST 41 (17-59) U/L ALT 40 (4-49) U/L Alkaline Phosphatase 66 (38-126) U/L Troponin I (0.000-0.034) ng/mL NT-Pro-B Natriuret Pep 3220 pg/mL Total Protein 7.3 (6.3-8.2) g/dL Albumin 4.2 (3.5-5.0) g/dL 06/16/24 06/16/24 Range/Units 10:06 10:06 WBC (3.8-10.6) k/uL RBC (4.30-5.90) m/uL Hgb (13.0-17.5) gm/dL Hct (39.0-53.0) % MCV (80.0-100.0) fL MCH (25.0-35.0) pg MCHC (31.0-37.0) g/dL RDW (11.5-15.5) % Plt Count (150-450) k/uL MPV Neutrophils % % Lymphocytes % % Monocytes % % Eosinophils % % Basophils % % Neutrophils # (1.3-7.7) k/uL Lymphocytes # (1.0-4.8) k/uL Monocytes # (0-1.0) k/uL Eosinophils # (0-0.7) k/uL Basophils # (0-0.2) k/uL PT (10.0-12.5) sec INR (<1.2) APTT (22.0-30.0) sec D-Dimer (<0.60) mg/L FEU Sodium (137-145) mmol/L Potassium (3.5-5.1) mmol/L Chloride (98-107) mmol/L Carbon Dioxide (22-30) mmol/L Anion Gap mmol/L BUN (9-20) mg/dL Creatinine (0.66-1.25) mg/dL Est GFR (CKD-EPI)AfAm (>60 ml/min/1.73 sqM) Est GFR (CKD-EPI)NonAf (>60 ml/min/1.73 sqM) Glucose (74-99) mg/dL Plasma Lactic Acid Александр 1.3 (0.7-2.0) mmol/L Calcium (8.4-10.2) mg/dL Magnesium (1.6-2.3) mg/dL Total Bilirubin (0.2-1.3) mg/dL AST (17-59) U/L ALT (4-49) U/L Alkaline Phosphatase (38-126) U/L Troponin I <0.012 (0.000-0.034) ng/mL NT-Pro-B Natriuret Pep pg/mL Total Protein (6.3-8.2) g/dL Albumin (3.5-5.0) g/dL Disposition Clinical Impression: New onset atrial flutter Disposition: ADMITTED IP TO THIS HOSP Referrals: Blessing Roger MD [Primary Care Provider] - 1-2 days Time of Disposition: 12:29
[2024-06-16 10:12] LABS: Basophils % (A) 0 %; Eosinophils # (A) 0.1 k/uL (0-0.7); Eosinophils % (A) 2 %; HCT 43.8 % (39.0-53.0); HGB 14.6 gm/dL (13.0-17.5); Lymphocytes # (A) 1.8 k/uL (1.0-4.8); Lymphocytes % (A) 19 %; MCH 30.7 pg (25.0-35.0); MCHC 33.3 g/dL (31.0-37.0); Mean Platelet Volume 7.8; Monocytes # (A) 0.4 k/uL (0-1.0); Monocytes % (A) 4 %; Neutrophils # (A) 7.1 k/uL (1.3-7.7); Neutrophils % (A) 75 %; Platelet Count 167 k/uL (150-450); RBC 4.75 m/uL (4.30-5.90); RDW 13.3 % (11.5-15.5); WBC 9.5 k/uL (3.8-10.6)
[2024-06-16 10:25] LABS: ALT 40 U/L (4-49); AST 41 U/L (17-59); African American GFR (CKD) >90 (>60 ml/min/1.73 sqM); Albumin 4.2 g/dL (3.5-5.0); Alkaline Phosphatase 66 U/L (38-126); Anion Gap 9 mmol/L; Blood Urea Nitrogen 17 mg/dL (9-20); Calcium 9.2 mg/dL (8.4-10.2); Carbon Dioxide 24 mmol/L (22-30); Chloride 106 mmol/L (98-107); Glucose 115 mg/dL (74-99); Magnesium 1.7 mg/dL (1.6-2.3); Non-African American GFR(CKD) >90 (>60 ml/min/1.73 sqM); Potassium 4.1 mmol/L (3.5-5.1); Sodium 139 mmol/L (137-145); Total Bilirubin 1.4 mg/dL (0.2-1.3); Total Protein 7.3 g/dL (6.3-8.2)
[2024-06-16] MEDS: HEPARIN SODIUM 1,000 UN/ML (10ML VL) IV ONE ×2 (10:26→18:45)
[2024-06-16] MEDS: HEPARIN SOD,PORK IN 0.45% NACL 25,000 UNIT in 0.45% NACL 1 250ML.BAG IV SCH (10:27)
[2024-06-16 10:29] LABS: INR 1.1 (<1.2); Partial Thromboplastin Time 23.1 sec (22.0-30.0); Prothrombin Time 11.6 sec (10.0-12.5)
[2024-06-16 10:33] LABS: NT-Pro-B-Type Natriuretic Pept 3220 pg/mL
--- NOTE | 2024-06-16 10:53 | XR ---
EXAMINATION TYPE: XR chest 2V DATE OF EXAM: 06/16/2024 COMPARISON: 12/11/2016 HISTORY: Difficulty breathing TECHNIQUE: Frontal and lateral views of the chest are obtained. FINDINGS: There is no lung consolidation or abnormal interstitial density. Heart size is normal and the pulmonary vasculature is not congested. There is no pneumothorax. There are trace bilateral pleural effusions not present on the prior study. The osseous structures are intact. IMPRESSION: Interval development of trace bilateral pleural effusions with no other significant abnormality seen.
[2024-06-16] MEDS: ACETAMINOPHEN TAB 500 MG TAB PO STA (11:20)
--- NOTE | 2024-06-16 11:50 | CT ---
EXAMINATION TYPE: CT brain wo con DATE OF EXAM: 06/16/2024 COMPARISON: None HISTORY: Headache after heparin CT DLP: 1243.4 mGycm Automated exposure control for dose reduction was used. Findings: The ventricles, basal cisterns and sulci over the convexities are within normal limits for the patien t's age and there is no mass effect or shift of midline structures. No abnormal density is seen throughout the brain parenchyma and there is no acute intra or extra-axia l hemorrhage. The posterior fossa including the brainstem, fourth ventricle and cerebellar pontine angles appear no rmal. Intraorbital contents appear normal and symmetric. There are a few small scattered mucous retention cysts or polyps in the maxillary sinuses. The mastoi d air cells are well aerated.. The calvarium is intact. IMPRESSION: No significant abnormality seen. There is no acute bleed or mass effect. Mild chronic inflammatory ch anges in the maxillary sinuses.
--- NOTE | 2024-06-16 11:56 | CT ---
EXAMINATION TYPE: CT chest angio for PE DATE OF EXAM: 06/16/2024 COMPARISON: None HISTORY: PE CT DLP: 2633.6 mGycm Automated exposure control for dose reduction was used. CONTRAST: CT Chest for pulmonary embolism performed with without and with IV Contrast, patient injected with 10 0 ml mL of Isovue 370. FINDINGS: LUNGS: The lungs are grossly clear, there is no concerning parenchymal mass or nodule identified. The re is a small focal pleural thickening or loculated pleural effusion in the left lung base. There is a trace right pleural effusion. There is no pneumothorax. MEDIASTINUM: There is satisfactory enhancement of the pulmonary artery and its branches, there is no CT evidence for pulmonary embolism. There are no greater than 1 cm hilar or mediastinal lymph nodes. No pericardial effusion is seen. OTHER: No additional significant abnormality is seen. IMPRESSION: 1. No evidence of pulmonary embolus. 2.Trace right pleural effusion and small focal left pleural thickening or loculated pleural effusion. 3. No airspace consolidation or abnormal interstitial density. Follow-up recommendations for incidental pulmonary nodules are per [employer] or [employer].
[2024-06-16] MEDS ORDERED: NITROGLYCERIN SL TABS 0.4 MG TAB SUBLINGUAL PRN (12:29)
[2024-06-16] MEDS: NITROGLYCERIN OINT 1 INCH/GM PACKET TOPICAL SCH (18:47)
[2024-06-16] MEDS: ATORVASTATIN 20 MG TAB PO SCH (21:33)
[2024-06-16] MEDS: atenoloL 25 MG TAB PO SCH (21:33)
--- NOTE | 2024-06-16 22:33 | P.HPIM ---
History of Present Illness H&P Date: 06/16/24 Chief Complaint: Shortness of breath Patient is a 69-year-old male with a past medical history of hypertension, hyperlipidemia, prior history of smoking, osteoarthritis and daily alcohol use presents to ER with complaints of shortness of breath. Patient states that he has been having exertional dyspnea for about 2 weeks. For the last couple of days whenever he exerts himself he is getting short of breath and starts to sweat. Patient has been having these episodes more frequently recently. Otherwise denied any chest pain. No cough or sputum production. No fever no chills. Denied any leg swelling. Denying nausea vomiting abdominal pain or diarrhea. EKG on admission showed atrial flutter/tachycardia with rapid ventricular response with heart rate 117 Chest x-ray showed interval development of trace bilateral pleural effusions with no other significant abnormality seen. CT head showed no significant abnormality seen. There is no acute bleed or mass effect. Mild chronic inflammatory changes in the maxillary sinuses. CTA chest showed no evidence of PE. Trace right pleural effusion and small focal left pleural thickening or loculated pleural effusion. No airspace consolidation or abnormal interstitial density. Laboratory data showed WBC 9.5 hemoglobin 14.6 and platelets 167 D-dimer 1.06 Sodium 139 potassium 4.1 chloride 106 bicarb 24 BUN 17 and creatinine 0.75 and blood sugar is 115. Magnesium 1.7 and total bili 1.4. Troponin x 3 negative proBNP 3220 Review of Systems Constitutional: Patient denies any fever or chills . No generalized weakness or weight loss. Abdomen: Patient denied nausea vomiting and diarrhea and abdominal pain. Cardiovascular: Patient denies any chest pain. Patient does have exertional short of breath no palpitations. Respiratory: patient denied any cough or sputum production. No shortness of breath Neurologic: Patient denied any numbness or tingling. no headache. Musculoskeletal: Patient denies any complaints of joint swelling or deformity. Skin: Negative Psychiatric: Negative Endocrine: No heat or cold intolerance. No recent weight gain. Genitourinary: No dysuria or hematuria. All other 14 point ROS negative except the above Past Medical History Past Medical History: Hyperlipidemia, Hypertension Additional Past Medical History / Comment(s): colonoscopy History of Any Multi-Drug Resistant Organisms: None Reported Past Surgical History: Joint Replacement, Orthopedic Surgery Additional Past Surgical History / Comment(s): rt knee in 1976; coloscopy 2013 Past Anesthesia/Blood Transfusion Reactions: No Reported Reaction Additional Past Anesthesia/Blood Transfusion Reaction / Comment(s): no blood transfusion Past Psychological History: No Psychological Hx Reported Smoking Status: Former smoker Past Alcohol Use History: Occasional Past Drug Use History: None Reported - Past Family History Mother Additional Family Medical History / Comment(s): cdiff, breast cancer, CABG 1999, septic shock, Father Family Medical History: AFIB, AICD/Pacemaker Additional Family Medical History / Comment(s): mac degeneration Medications and Allergies Home Medications Medication Instructions Recorded Confirmed Type Multivitamin [Men's Multi-Vitamin] 1 tab PO DAILY 12/11/16 06/16/24 History Aspirin 81 mg PO DAILY 09/14/23 06/16/24 History Losartan/Hydrochlorothiazide 1 tab PO DAILY 09/14/23 06/16/24 History [Losartan-Hctz 100-25 mg Tab] Rosuvastatin [Crestor] 10 mg PO HS 09/14/23 06/16/24 History Biotin 1,000 Mcg 1,000 mcg PO DAILY 06/16/24 06/16/24 History Garlic 1,000 mg PO DAILY 06/16/24 06/16/24 History Metoprolol Tartrate [Lopressor] 50 mg PO BID #60 tab 06/17/24 Rx Allergies Allergy/AdvReac Type Severity Reaction Status Date / Time No Known Allergies Allergy Verified 06/16/24 13:22 Physical Exam Vitals: Vital Signs Temp Pulse Pulse Resp BP BP Pulse Ox 06/16/24 15:00 99 F 112 H 16 149/99 95 06/16/24 14:00 112 H 18 06/16/24 12:45 80 17 140/98 94 L 06/16/24 12:30 96 06/16/24 12:15 78 20 124/90 96 06/16/24 12:00 80 18 139/104 95 06/16/24 11:45 108 H 20 97 06/16/24 11:15 102 H 20 135/94 96 06/16/24 09:26 97.8 F 119 H 22 151/104 98 Intake and Output 06/16/24 06/16/24 06/16/24 06:59 14:59 22:59 Intake Total 100 200.113 Balance 100 200.113 Intake: Intake, IV Titration 82.113 Amount Heparin Sod,Pork in 0.45% 82.113 NaCl 25,000 unit In 0.45 % NaCl 1 250ml.bag @ 6. 561 UNITS/KG/HR 9.999 mls /hr IV .Q24H [facility] Rx#: [id number] Oral 100 118 Other: Weight 152.407 kg PHYSICAL EXAMINATION: Patient is lying in the bed comfortably, no acute distress, awake alert and oriented.. HEENT: Normocephalic. Neck is supple. Pupils reactive. Nostrils clear. Oral cavity is moist. Neck reveals no JVD, carotid bruits, or thyromegaly. CHEST EXAMINATION: Trachea is central. Symmetrical expansion. Bibasilar diminished sounds. No wheezing or rhonchi. CARDIAC: Normal S1, S2 with no gallops. No murmurs. Irregularly regular rhythm. ABDOMEN: Soft. Bowel sounds normal. No organomegaly. No abdominal bruits. Extremities: Bilateral lower extremity trace edema. No clubbing or cyanosis Neurologically awake, alert, oriented x3 with well-coordinated movements. No focal deficits noted Skin: No rash or skin lesions. Psychiatric: Coperative. Nonsuicidal Musculoskeletal: No joint swelling or deformity. Normal range of motion. Results CBC & Chem 7: 06/16/24 10:06 06/17/24 05:59 Labs: Abnormal Lab Results - Last 24 Hours (Table) 06/16/24 06/16/24 Range/Units 10:06 10:06 D-Dimer 1.06 H (<0.60) mg/L FEU Glucose 115 H (74-99) mg/dL Total Bilirubin 1.4 H (0.2-1.3) mg/dL Thrombosis Risk Factor Assmnt - DVT/VTE Prophylaxis DVT/VTE Prophylaxis: Pharmacologic Prophylaxis ordered Assessment and Plan Assessment: New onset atrial fibrillation/flutter with rapid ventricular response. Acute CHF EF not known. Patient does have trace pleural effusions bilaterally and elevated proBNP level. Hypertension Hyperlipidemia Daily alcohol use Obesity with BMI 38.8 DVT prophylaxis patient is on heparin. Plan: Patient will be continued on telemonitoring. Started on heparin drip. Continue with home dose of atenolol. Cardiology was consulted for evaluation. 2D echocardiogram was ordered. Continue thiamine and multivitamins and monitor for withdrawal symptoms. Alcohol abstinence has been counseled. Continue to follow closely. Time with Patient: Greater than 30
[2024-06-16] MEDS: HEPARIN SODIUM 1,000 UN/ML (10ML VL) IV PRN (23:34)
[2024-06-17] MEDS ORDERED: ASPIRIN 325 MG TAB PO SCH (09:00)
[2024-06-17] MEDS: APIXABAN 5 MG TAB PO SCH (09:24)
[2024-06-17] MEDS: MULTIVITAMINS, THERA 1 EACH TAB PO SCH (09:24)
[2024-06-17] MEDS: LOSARTAN-HCTZ 50-12.5 MG 1 EACH TAB PO SCH (09:24)
[2024-06-17] MEDS: METOPROLOL TARTRATE 50 MG TAB PO SCH (09:24)
--- NOTE | 2024-06-17 09:59 | P.CRDCN ---
History of Present Illness History of present illness: HISTORY OF PRESENT ILLNESS: This is a 69-year-old male with a past medical history significant for hypertension, hyperlipidemia, and daily alcohol use. 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 We have been asked to see the patient in consultation for new onset atrial flutter. Patient examined at the bedside. Patient states over the weekend he was feeling very short of breath with minimal activity. He reports feeling diaphoretic as well. He states that he does believe the symp toms have been intermittent for the past 2 months. He denies any chest pain or pressure. He is a non-smoker. He denies any drug use. He does report daily alcohol use of 5-6 drinks per night. DIAGNOSTICS: - EKG reveals atrial flutter with RVR - Chest xray interval development of trace bilateral pleural effusions with no other significant abnormality seen - Laboratory data: WBC 9.5. Hemoglobin 14.6. Platelet count 167. Sodium 139. Potassium 4.1. BUN 17. Creatinine 0.75. Magnesium 1.7. Troponin negative x 3. proBNP 3220. - Current home cardiac medications include aspirin 81 mg daily, atenolol 25 mg twice a day, rosuvastatin 10 mg at night - Most recent echocardiogram obtained in 2017 revealed ejection fraction 55 to 60%, trace MR, trace TR REVIEW OF SYSTEMS: At the time of my exam: CONSTITUTIONAL: Denies fever or chills. HEENT: Denies blurred vision, vision changes, or eye pain. Denies hemoptysis CARDIOVASCULAR: Denies chest pain. Denies orthopnea. Denies PND. Denies palp itations RESPIRATORY: Denies shortness of breath. GASTROINTESTINAL: Denies abdominal pain. Denies nausea or vomiting. HEMATOLOGIC: Denies bleeding disorders. GENITOURINARY: Denies any blood in urine. SKIN: Denies pruitis. Denies rash. PHYSICAL EXAM: VITAL SIGNS: Reviewed. GENERAL: Well-developed in no acute distress. HEENT: Head is normocephalic. Pupils are equal, round. Sclerae anicteric. Mucous membranes of the mouth are moist. Neck supple. No JVD or thyromegaly LUNGS: Respirations even and unlabored. Lungs essentially clear to auscultation bilaterally. HEART: Tachycardic. Regular rate and rhythm. S1 and S2 heard. ABDOMEN: Soft. Nondistended. Nontender. EXTREMITIES: Normal range of motion. No clubbing or cyanosis. Peripheral pulses intact. No lower extremity edema NEUROLOGIC: Awake and alert. Oriented x 3. ASSESSMENT: New onset typical atrial flutter with RVR Hypertension Hyperlipidemia Daily alcohol use, 5-6 drinks daily PLAN: Obtain 2D echo to assess cardiac structure and function Discontinue IV heparin. Begin Eliquis 5 mg twice a day Discontinue atenolol. Begin metoprolol tartrate 50 mg twice a day Abstinence from alcohol recommended Continue telemetry monitoring N.p.o. at midnight for possible GET/cardioversion versus performing on an outpatient basis. Patient will be reevaluated tomorrow Further recommendations pending patient course Nurse practitioner note has been reviewed by physician. Signing provider agrees with the documented findings, assessment, and plan of care documented by FINANCE ASSISTANT as a scribe. Past Medical History Past Medical History: Hyperlipidemia, Hypertension Additional Past Medical History / Comment(s): colonoscopy History of Any Multi-Drug Resistant Organisms: None Reported Past Surgical History: Joint Replacement, Orthopedic Surgery Additional Past Surgical History / Comment(s): rt knee in 1976; coloscopy 2013 Past Anesthesia/Blood Transfusion Reactions: No Reported Reaction Additional Past Anesthesia/Blood Transfusion Reaction / Comment(s): no blood transfusion Past Psychological History: No Psychological Hx Reported Smoking Status: Former smoker Past Alcohol Use History: Occasional Past Drug Use History: None Reported - Past Family History Mother Additional Family Medical History / Comment(s): cdiff, breast cancer, CABG 1999, septic shock, Father Family Medical History: AFIB, AICD/Pacemaker Additional Family Medical History / Comment(s): mac degeneration Medications and Allergies Home Medications Medication Instructions Recorded Confirmed Type Multivitamin [Men's Multi-Vitamin] 1 tab PO DAILY 12/11/16 06/16/24 History Aspirin 81 mg PO DAILY 09/14/23 06/16/24 History Losartan/Hydrochlorothiazide 1 tab PO DAILY 09/14/23 06/16/24 History [Losartan-Hctz 100-25 mg Tab] Rosuvastatin [Crestor] 10 mg PO HS 09/14/23 06/16/24 History Biotin 1,000 Mcg 1,000 mcg PO DAILY 06/16/24 06/16/24 History Garlic 1,000 mg PO DAILY 06/16/24 06/16/24 History atenoloL [Tenormin] 25 mg PO BID 06/16/24 06/16/24 History Allergies Allergy/AdvReac Type Severity Reaction Status Date / Time No Known Allergies Allergy Verified 06/16/24 13:22 Physical Exam Vitals: Vital Signs Temp Pulse Pulse Resp BP BP BP 06/17/24 02:00 97.7 F 76 149/86 06/16/24 20:00 98.5 F 97 153/88 06/16/24 15:00 99 F 112 H 16 149/99 06/16/24 14:00 112 H 18 06/16/24 12:45 80 17 140/98 06/16/24 12:30 06/16/24 12:15 78 20 124/90 06/16/24 12:00 80 18 139/104 06/16/24 11:45 108 H 20 06/16/24 11:15 102 H 20 135/94 Pulse Ox 06/17/24 02:00 97 06/16/24 20:00 100 06/16/24 15:00 95 06/16/24 14:00 06/16/24 12:45 94 L 06/16/24 12:30 96 06/16/24 12:15 96 06/16/24 12:00 95 06/16/24 11:45 97 06/16/24 11:15 96 Intake and Output 06/16/24 06/17/24 06/17/24 22:59 06:59 14:59 Intake Total 200.113 193.412 Balance 200.113 193.412 Intake: Intake, IV Titration 82.113 193.412 Amount Heparin Sod,Pork in 0.45% 82.113 193.412 NaCl 25,000 unit In 0.45 % NaCl 1 250ml.bag @ 6. 561 UNITS/KG/HR 9.999 mls /hr IV .Q24H [facility] Rx#: [id number] Oral 118 Other: # Voids 3 2 Results 06/16/24 10:06 06/16/24 10:06 Cardiac Enzymes 06/16/24 06/16/24 06/16/24 Range/Units 10:06 10:06 13:56 AST 41 (17-59) U/L Troponin I <0.012 <0.012 (0.000-0.034) ng/mL 06/16/24 Range/Units 17:35 AST (17-59) U/L Troponin I <0.012 (0.000-0.034) ng/mL Coagulation 06/16/24 06/16/24 06/16/24 Range/Units 10:06 17:35 22:43 PT 11.6 (10.0-12.5) sec APTT 23.1 28.7 41.2 H (22.0-30.0) sec 06/17/24 Range/Units 05:59 PT (10.0-12.5) sec APTT 50.0 H (22.0-30.0) sec CBC 06/16/24 Range/Units 10:06 WBC 9.5 (3.8-10.6) k/uL RBC 4.75 (4.30-5.90) m/uL Hgb 14.6 (13.0-17.5) gm/dL Hct 43.8 (39.0-53.0) % Plt Count 167 (150-450) k/uL Comprehensive Metabolic Panel 06/16/24 Range/Units 10:06 Sodium 139 (137-145) mmol/L Potassium 4.1 (3.5-5.1) mmol/L Chloride 106 (98-107) mmol/L Carbon Dioxide 24 (22-30) mmol/L BUN 17 (9-20) mg/dL Creatinine 0.75 (0.66-1.25) mg/dL Glucose 115 H (74-99) mg/dL Calcium 9.2 (8.4-10.2) mg/dL AST 41 (17-59) U/L ALT 40 (4-49) U/L Alkaline Phosphatase 66 (38-126) U/L Total Protein 7.3 (6.3-8.2) g/dL Albumin 4.2 (3.5-5.0) g/dL Current Medications Generic Name Dose Route Start Last Admin Trade Name Freq PRN Reason Stop Dose Admin Apixaban 5 mg 06/17/24 09:00 06/17/24 09:24 Apixaban 5 Mg Tab PO 5 mg BID BAN Administration Protocol Atorvastatin Calcium 40 mg 06/17/24 21:00 Atorvastatin 40 Mg Tab PO HS BAN HCTZ/Losartan Potassium 2 each 06/17/24 09:00 06/17/24 09:24 Losartan-Hctz 50-12.5 Mg 1 Each Tab PO 2 each DAILY [facility]AN Administration Metoprolol Tartrate 50 mg 06/17/24 09:00 06/17/24 09:24 Metoprolol Tartrate 50 Mg Tab PO 50 mg BID BAN Administration Multivitamins 1 each 06/17/24 09:00 06/17/24 09:24 Multivitamins, Thera 1 Each Tab PO 1 each DAILY BAN Administration Nitroglycerin 0.4 mg 06/16/24 12:29 Nitroglycerin Sl Tabs 0.4 Mg Tab SUBLINGUAL Q5M PRN Chest Pain Intake and Output 06/16/24 06/17/24 06/17/24 22:59 06:59 14:59 Intake Total 200.113 193.412 Balance 200.113 193.412 Intake: Intake, IV Titration 82.113 193.412 Amount Heparin Sod,Pork in 0.45% 82.113 193.412 NaCl 25,000 unit In 0.45 % NaCl 1 250ml.bag @ 6. 561 UNITS/KG/HR 9.999 mls /hr IV .Q24H [facility] Rx#: [id number] Oral 118 Other: # Voids 3 2 06/16/24 10:06 06/16/24 10:06
[2024-06-17 10:29] LABS: Calcium 8.7 mg/dL (8.7-10.3); Chloride 103 mmol/L (96-109); Chol/HDL Ratio 3.11 Ratio; Glucose 93 mg/dL (70-110); LDL Cholesterol,Calculated 68.9 mg/dL (0.0-131.0); Potassium 3.7 mmol/L (3.5-5.5); Sodium 138 mmol/L (135-145)
--- NOTE | 2024-06-17 11:27 | CA ---
Transthoracic Echo Report Name: Braden Bee Age: 69 Gender: M : 1955 Exam Date: 06/17/2024 08:49 Exam Location: [facility] Ht (in): 78 Wt (lb): 336 Ordering Physician: Yoko Sauceda Attending/Referring Phys: Wire Bound Box Machine Operator Kiesha Natarajan RDCS Procedure CPT: Indications: LV function, new onset AFib/flutter Cardiac Hx: Technical Quality: Technically difficult study Contrast 1: Definity Total Dose (mL): 2 Contrast 2: Total Dose (mL): MEASUREMENTS (Male / Female) Normal Values 2D ECHO LV Diastolic Diameter PLAX 5.8 cm 4.2 - 5.9 / 3.9 - 5.3 cm LV Systolic Diameter PLAX 4.6 cm IVS Diastolic Thickness 1.1 cm 0.6 - 1.0 / 0.6 - 0.9 cm LVPW Diastolic Thickness 1.0 cm 0.6 - 1.0 / 0.6 - 0.9 cm LV Relative Wall Thickness 0.4 RV Internal Dim ED PLAX 5.4 cm LV Diastolic Volume MOD BP 132.8 cm??? 67 - 155 / 56 - 104 cm??? LV Systolic Volume MOD BP 73.4 cm??? 22 - 58 / 19 - 49 cm??? LV Ejection Fraction MOD BP 44.7 % >= 55 % LV Cardiac Index MOD BP 1670.3 cm???/min???m??? LV Diastolic Volume MOD 4C 140.4 cm??? LV Systolic Volume MOD 4C 83.9 cm??? LV Ejection Fraction MOD 4C 40.2 % LV Cardiac Index MOD 4C 1589.6 cm???/min???m??? LV Diastolic Length 4C 8.7 cm LV Systolic Length 4C 8.0 cm LV Diastolic Volume MOD 2C 114.1 cm??? LV Systolic Volume MOD 2C 59.0 cm??? LV Ejection Fraction MOD 2C 48.2 % LV Cardiac Index MOD 2C 1549.4 cm???/min???m??? LV Diastolic Length 2C 9.7 cm LV Systolic Length 2C 8.9 cm LA Volume 131.4 cm??? 18 - 58 / 22 - 52 cm??? LA Volume Index 44.6 cm???/m??? 16 - 28 cm???/m??? M-MODE Aortic Root Diameter MM 3.3 cm LA Systolic Diameter MM 5.1 cm LA Ao Ratio MM 1.6 AV Cusp Separation MM 2.2 cm DOPPLER AV Peak Velocity 123.9 cm/s AV Peak Gradient 6.1 mmHg AV Mean Velocity 92.6 cm/s AV Mean Gradient 3.8 mmHg AV Velocity Time Integral 22.9 cm LVOT Peak Velocity 96.3 cm/s LVOT Peak Gradient 3.7 mmHg LVOT Velocity Time Integral 18.1 cm MV E' Velocity 6.9 cm/s TR Peak Velocity 248.2 cm/s TR Peak Gradient 24.6 mmHg Right Ventricular Systolic Press 27.6 mmHg FINDINGS Left Ventricle Mildly increased septal wall thickness. Moderately increased left ventricular systolic volume. Moderately decreased left ventricular ejection fraction. Left ventricular ejection fraction is estimated at 35-40 %. Right Ventricle Right ventricular dilatation. Right ventricular systolic pressure within normal limits. Right Atrium Right atrial dilatation. Left Atrium Severely increased left atrial volume. Moderately increased left atrial area. Mitral Valve Structurally normal mitral valve. [id number] mitral regurgitation. Aortic Valve Trileaflet aortic valve. No aortic valve stenosis or regurgitation. Tricuspid Valve Structurally normal tricuspid valve. [id number] tricuspid regurgitation. Pulmonic Valve Structurally normal pulmonic valve. Trace pulmonic regurgitation. Pericardium No pericardial effusion. Aorta Normal size aortic root and proximal ascending aorta. CONCLUSIONS Moderate to severe LV systolic dysfunction Mild to moderate mitral regurgitation Left atrial enlargement mild to moderate tricuspid regurgitation Previewed by: Dr. James Cheema MD (Electronically Signed) Final Date: 17 June 2024 11:26
[2024-06-17] MEDS: ATORVASTATIN 40 MG TAB PO SCH (21:14)
--- NOTE | 2024-06-17 22:58 | P.PN ---
Subjective Progress Note Date: 06/17/24 Patient is a 69-year-old male with a past medical history of hypertension, hyperlipidemia, prior history of smoking, osteoarthritis and daily alcohol use presents to ER with complaints of shortness of breath. Patient states that he has been having exertional dyspnea for about 2 weeks. For the last couple of days whenever he exerts himself he is getting short of breath and starts to sweat. Patient has been having these episodes more frequently recently. Otherwise denied any chest pain. No cough or sputum production. No fever no chills. Denied any leg swelling. Denying nausea vomiting abdominal pain or diarrhea. EKG on admission showed atrial flutter/tachycardia with rapid ventricular respon se with heart rate 117 Chest x-ray showed interval development of trace bilateral pleural effusions with no other significant abnormality seen. CT head showed no significant abnormality seen. There is no acute bleed or mass effect. Mild chronic inflammatory changes in the maxillary sinuses. CTA chest showed no evidence of PE. Trace right pleural effusion and small focal left pleural thickening or loculated pleural effusion. No airspace consolidation or abnormal interstitial density. Laboratory data showed WBC 9.5 hemoglobin 14.6 and platelets 167 D-dimer 1.06 Sodium 139 potassium 4.1 chloride 106 bicarb 24 BUN 17 and creatinine 0.75 and blood sugar is 115. Magnesium 1.7 and total bili 1.4. Troponin x 3 negative proBNP 3220 06/17/2024 Patient is lying in the bed. Awake alert and oriented x 3. Patient states that shortness of breath is better today. Heparin drip has been discontinued and patient was started on over anticoagulation. Atenolol changed to metoprolol 50 mg twice daily. Heart rate is around 110. Patient remains in atrial flutter otherwise. Cardiology is planning for cardioversion. 2D echocardiogram showed moderate to severe LV systolic dysfunction. Mild to moderate MR and mild to moderate TR. Left atrial enlargement. Laboratory data showed sodium 138 potassium 3.7 chloride 103 bicarb is 22 BUN 12 and creatinine 0.8 and calcium 8.7. TSH 1.91 within normal limits. LDL 68.9 Current medications reviewed. Objective - Vital Signs Vital signs: Vital Signs Temp 97.9 F 06/17/24 07:00 Pulse 57 L 06/17/24 07:00 Resp 17 06/17/24 07:00 BP 143/96 06/17/24 07:00 Pulse Ox 98 06/17/24 13:02 FiO2 Intake & Output 06/16/24 06/17/24 06/17/24 18:59 06:59 18:59 Intake Total 300.113 193.412 118 Balance 300.113 193.412 118 Weight 152.407 kg Intake: Intake, IV Titration 82.113 193.412 Amount Heparin Sod,Pork in 0.45% 82.113 193.412 NaCl 25,000 unit In 0.45 % NaCl 1 250ml.bag @ 6. 561 UNITS/KG/HR 9.999 mls /hr IV .Q24H [facility] Rx#: [id number] Oral 218 118 Other: # Voids 2 - Exam PHYSICAL EXAMINATION: Patient is lying in the bed comfortably, no acute distress, awake alert and oriented.. HEENT: Normocephalic. Neck is supple. Pupils reactive. Nostrils clear. Oral cavity is moist. Neck reveals no JVD, carotid bruits, or thyromegaly. CHEST EXAMINATION: Trachea is central. Symmetrical expansion. Bibasilar diminished sounds. No wheezing or rhonchi. CARDIAC: Normal S1, S2 with no gallops. No murmurs. Irregularly regular rhythm. ABDOMEN: Soft. Bowel sounds normal. No organomegaly. No abdominal bruits. Extremities: Bilateral lower extremity trace edema. No clubbing or cyanosis Neurologically awake, alert, oriented x3 with well-coordinated movements. No focal deficits noted Skin: No rash or skin lesions. Psychiatric: Coperative. Nonsuicidal Musculoskeletal: No joint swelling or deformity. Normal range of motion. - Labs CBC & Chem 7: 06/16/24 10:06 06/17/24 05:59 Labs: Abnormal Lab Results - Last 24 Hours (Table) 06/16/24 06/17/24 06/17/24 Range/Units 22:43 05:59 05:59 APTT 41.2 H 50.0 H (22.0-30.0) sec Anion Gap 13.00 H (4.00-12.00) mmol/L HDL Cholesterol 39.90 L (40.00-60.00) mg/dL Assessment and Plan Assessment: New onset atrial fibrillation/flutter with rapid ventricular response. Acute CHF EF with systolic dysfunction.. Patient does have trace pleural effusions bilaterally and elevated proBNP level. Hypertension Hyperlipidemia Daily alcohol use Obesity with BMI 38.8 DVT prophylaxis patient is on heparin. Plan: Patient will be continued on telemonitoring. Heparin drip has been discontinued and patient was started on Eliquis and also started on metoprolol. DC atenolol which she takes at home. Patient is also on lisinopril/hydrochlorothiazide. 2D echocardiogram report as above. Cardiology is planning for GET/cardioversion Continue thiamine and multivitamins and monitor for withdrawal symptoms. Alcohol abstinence has been counseled. Continue to follow closely. Time with Patient: Greater than 30
[2024-06-17] MEDS: MAGNESIUM SULFATE-D5W PMX 1 GM in DEXTROSE/WATER 1 100ML.BAG IVPB ONE (23:42)
[2024-06-17] MEDS: POTASSIUM CHLORIDE ER 20 MEQ TAB.ER PO STA (23:42)
[2024-06-18] MEDS: THIAMINE 100 MG TAB PO SCH (08:11)
[2024-06-18 08:41] LABS: Basophils # (A) 0.04 X 10*3/uL (0.00-0.10); Basophils % (A) 0.5 %; Eosinophils # (A) 0.27 X 10*3/uL (0.04-0.35); Eosinophils % (A) 3.5 %; HGB 14.1 g/dL (13.0-17.0); Lymphocytes # (A) 1.98 X 10*3/uL (0.90-5.00); Lymphocytes % (A) 25.3 %; MCH 30.5 pg (27.0-32.0); MCHC 34.4 g/dL (32.0-37.0); MCV 88.7 FL (80.0-97.0); Mean Platelet Volume 11.1 FL (9.5-12.2); Monocytes # (A) 0.66 X 10*3/uL (0.20-1.00); Monocytes % (A) 8.4 %; NRBC Per 100 WBC 0 X 10*3/uL (0.00-0.01); Neutrophils # (A) 4.84 X 10*3/uL (1.80-7.70); Neutrophils % (A) 61.9 %; Platelet Count 159 X 10*3/uL (140-440); RBC 4.62 X 10*6/uL (4.40-5.60); RDW 13.2 % (11.5-14.5); WBC 7.82 X 10*3/uL (4.50-10.00)
[2024-06-18 08:46] LABS: BUN/Creat Ratio 13.38 Ratio (12.00-20.00); Blood Urea Nitrogen 10.7 mg/dL (9.0-27.0); Calcium 8.8 mg/dL (8.7-10.3); Carbon Dioxide 22.6 mmol/L (21.6-31.8); Chloride 105 mmol/L (96-109); Glucose 108 mg/dL (70-110); Magnesium 2.1 mg/dL (1.5-2.4); Potassium 4.3 mmol/L (3.5-5.5); Sodium 140 mmol/L (135-145)
--- NOTE | 2024-06-18 09:42 | P.PN ---
Subjective HISTORY OF PRESENT ILLNESS: This is a 69-year-old male with a past medical history significant for hypertension, hyperlipidemia, and daily alcohol use. 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 We have been asked to see the patient in consultation for new onset atrial flutter. Patient examined at the bedside. Patient states over the weekend he was feeling very short of breath with minimal activity. He reports feeling diaphoretic as well. He states that he does believe the symptoms have been intermittent for the past 2 months. He denies any chest pain or pressure. He is a non-smoker. He denies any drug use. He does report daily alcohol use of 5-6 drinks per night. DIAGNOSTICS: - EKG reveals atrial flutter with RVR - Chest xray interval development of trace bilateral pleural effusions with no other significant abnormality seen - Laboratory data: WBC 9.5. Hemoglobin 14.6. Platelet count 167. Sodium 139. Potassium 4.1. BUN 17. Creatinine 0.75. Magnesium 1.7. Troponin negative x 3. proBNP 3220. - Current home cardiac medications include aspirin 81 mg daily, atenolol 25 mg twice a day, rosuvastatin 10 mg at night - Most recent echocardiogram obtained in 2016 revealed ejection fraction 55 to 60%, trace MR, trace TR 06/18/2024 Patient examined this morning at the bedside. Patient currently denies chest pain or pressure. He denies shortness of breath. He remains in atrial flutter with heart rate around 120. Echocardiogram completed revealing ejection fraction 35 to 40%, mild to moderate MR, left atrial enlargement, and mild to moderate TR. PHYSICAL EXAM: VITAL SIGNS: Reviewed. GENERAL: Well-developed in no acute distress. HEENT: Head is normocephalic. Pupils are equal, round. Sclerae anicteric. Mucous membranes of the mouth are moist. Neck supple. No JVD or thyromegaly LUNGS: Respirations even and unlabored. Lungs essentially clear to auscultation bilaterally. HEART: Tachycardic. Regular rate and rhythm. S1 and S2 heard. ABDOMEN: Soft. Nondistended. Nontender. EXTREMITIES: Normal range of motion. No clubbing or cyanosis. Peripheral pulses intact. No lower extremity edema NEUROLOGIC: Awake and alert. Oriented x 3. ASSESSMENT: New onset typical atrial flutter with RVR New onset cardiomyopathy, 35 to 40%, suspect nonischemic Hypertension Hyperlipidemia Daily alcohol use, 5-6 drinks daily PLAN: Continue current cardiac medications Abstinence from alcohol recommended Continue telemetry monitoring Plan was for GET and cardioversion this morning. However according to OR charge nurse, anesthesia is unable to accommodate the patient today due to short staffing. NPO at midnight Patient will be scheduled for GET and cardioversion tomorrow at 10:30 AM Will add oral amiodarone 400 mg twice a day Further recommendations pending patient course Nurse practitioner note has been reviewed by physician. Signing provider agrees with the documented findings, assessment, and plan of care documented by STREETCAR OPERATOR as a scribe. Objective - Vital Signs Vital signs: Vital Signs Temp 98.1 F 06/18/24 07:45 Pulse 120 H 06/18/24 07:45 Resp 15 06/18/24 07:45 BP 137/89 06/18/24 07:45 Pulse Ox 95 06/18/24 07:45 FiO2 Intake & Output 06/17/24 06/18/24 06/18/24 18:59 06:59 18:59 Intake Total 354 Balance 354 Intake: Oral 354 Other: Voiding Method Toilet Urinal # Voids 1 0 - Labs CBC & Chem 7: 06/18/24 05:54 06/18/24 05:54 Labs: Abnormal Lab Results - Last 24 Hours (Table) 06/17/24 06/18/24 Range/Units 05:59 05:54 Anion Gap 13.00 H 12.40 H (4.00-12.00) mmol/L HDL Cholesterol 39.90 L (40.00-60.00) mg/dL
[2024-06-18] MEDS: AMIODARONE 200 MG TAB PO SCH (12:40)
--- NOTE | 2024-06-18 22:59 | P.PN ---
Subjective Progress Note Date: 06/18/24 Patient is a 69-year-old male with a past medical history of hypertension, hyperlipidemia, prior history of smoking, osteoarthritis and daily alcohol use presents to ER with complaints of shortness of breath. Patient states that he has been having exertional dyspnea for about 2 weeks. For the last couple of days whenever he exerts himself he is getting short of breath and starts to sweat. Patient has been having these episodes more frequently recently. Otherwise denied any chest pain. No cough or sputum production. No fever no chills. Denied any leg swelling. Denying nausea vomiting abdominal pain or diarrhea. EKG on admission showed atrial flutter/tachycardia with rapid ventricular respon se with heart rate 117 Chest x-ray showed interval development of trace bilateral pleural effusions with no other significant abnormality seen. CT head showed no significant abnormality seen. There is no acute bleed or mass effect. Mild chronic inflammatory changes in the maxillary sinuses. CTA chest showed no evidence of PE. Trace right pleural effusion and small focal left pleural thickening or loculated pleural effusion. No airspace consolidation or abnormal interstitial density. Laboratory data showed WBC 9.5 hemoglobin 14.6 and platelets 167 D-dimer 1.06 Sodium 139 potassium 4.1 chloride 106 bicarb 24 BUN 17 and creatinine 0.75 and blood sugar is 115. Magnesium 1.7 and total bili 1.4. Troponin x 3 negative proBNP 3220 06/17/2024 Patient is lying in the bed. Awake alert and oriented x 3. Patient states that shortness of breath is better today. Heparin drip has been discontinued and patient was started on over anticoagulation. Atenolol changed to metoprolol 50 mg twice daily. Heart rate is around 110. Patient remains in atrial flutter otherwise. Cardiology is planning for cardioversion. 2D echocardiogram showed moderate to severe LV systolic dysfunction. Mild to moderate MR and mild to moderate TR. Left atrial enlargement. Laboratory data showed sodium 138 potassium 3.7 chloride 103 bicarb is 22 BUN 12 and creatinine 0.8 and calcium 8.7. TSH 1.91 within normal limits. LDL 68.9 06/18/2024 Patient is sitting in the chair. Awake alert and oriented x 3. No complaints of chest pain or shortness of breath. Exertional dyspnea did improve compared to yesterday. Otherwise patient remains in atrial flutter. 2D echocardiogram showed ejection fraction 35 to 40% with mild to moderate MR, left atrial enlargement and mild to moderate TR. Patient is being continued on metoprolol and amiodarone was added. Cardiology is planning for GET tomorrow. Laboratory data reviewed. Current medications reviewed. Objective - Vital Signs Vital signs: Vital Signs Temp 97.8 F 06/18/24 19:19 Pulse 109 H 06/18/24 19:19 Resp 18 06/18/24 19:19 BP 138/71 06/18/24 19:19 Pulse Ox 95 06/18/24 19:19 FiO2 Intake & Output 06/18/24 06/18/24 06/19/24 06:59 18:59 06:59 Intake Total 236 Balance 236 Intake: Oral 236 Other: Voiding Method Toilet Urinal # Voids 0 1 - Exam PHYSICAL EXAMINATION: Patient is lying in the bed comfortably, no acute distress, awake alert and oriented.. HEENT: Normocephalic. Neck is supple. Pupils reactive. Nostrils clear. Oral cavity is moist. Neck reveals no JVD, carotid bruits, or thyromegaly. CHEST EXAMINATION: Trachea is central. Symmetrical expansion. Bibasilar d iminished sounds. No wheezing or rhonchi. CARDIAC: Normal S1, S2 with no gallops. No murmurs. Irregularly regular rhythm. ABDOMEN: Soft. Bowel sounds normal. No organomegaly. No abdominal bruits. Extremities: Bilateral lower extremity trace edema. No clubbing or cyanosis Neurologically awake, alert, oriented x3 with well-coordinated movements. No focal deficits noted Skin: No rash or skin lesions. Psychiatric: Coperative. Nonsuicidal Musculoskeletal: No joint swelling or deformity. Normal range of motion. - Labs CBC & Chem 7: 06/18/24 05:54 06/18/24 05:54 Labs: Abnormal Lab Results - Last 24 Hours (Table) 06/18/24 Range/Units 05:54 Anion Gap 12.40 H (4.00-12.00) mmol/L Assessment and Plan Assessment: New onset atrial fibrillation/flutter with rapid ventricular response. Acute CHF EF with systolic dysfunction. EF 35 to 40%.. Patient does have trace pleural effusions bilaterally and elevated proBNP level. Hypertension Hyperlipidemia Daily alcohol use Obesity with BMI 38.8 DVT prophylaxis patient is Eliquis. Plan: Patient will be continued on telemonitoring. Heparin drip has been discontinued and patient was started on Eliquis and also started on metoprolol. DC atenolol which she takes at home. Patient is also on lisinopril/hydrochlorothiazide. 2D echocardiogram report as above. Cardiology is planning for GET/cardioversion tomorrow. Started on amiodarone 4 mg twice daily. Continue thiamine and multivitamins and monitor for withdrawal symptoms. Alcohol abstinence has been counseled. Continue to follow closely. Time with Patient: Greater than 30
[2024-06-19] MEDS: SODIUM CHLORIDE 0.9% 500 ML 500 ML IV ONE (10:14)
[2024-06-19] MEDS ORDERED: LIDOCAINE 1% INJ 10MG/ML (20 ML MDV) ONE (10:30)
[2024-06-19] MEDS ORDERED: PROPOFOL 10 MG/ML 20 ML VIAL IV ONE (10:30)
--- NOTE | 2024-06-19 11:04 | ECHOT ---
TRANSESOPHAGEAL ECHOCARDIOGRAM INDICATIONS: Typical atrial flutter. PROCEDURE NOTE: After obtaining informed consent, transesophageal echocardiogram is performed in left lateral position using an Omniplane probe. Local and IV sedation were obtained by the jewel sawyer. The patient tolerated the procedure well without any obvious immediate complications. FINDINGS: 1. There is no intracardiac thrombus within the left atrial appendage, left atrium, right atrium, right ventricle, and left ventricle. 2. There is severe biatrial enlargement. 3. Left ventricle shows diffuse global hypokinesis with severe LV systolic dysfunction with an ejection fraction of 30% to 35%. There is moderate central mitral regurgitation noted, aortic valve is free of stenosis or regurgitation. There is mild tricuspid regurgitation noted. Interatrial septum, there is no evidence of [id number] shunt by color-flow Doppler or [id number] shunt by agitated saline contrast study. CONCLUSIONS: 1. No intracardiac thrombus. 2. Severe LV systolic dysfunction. 3. Biatrial enlargement. PLAN: Patient will proceed with cardioversion. MMODL / IJN: [id number] /
[2024-06-19] MEDS: SODIUM CHLORIDE 0.9% 1,000 ML IV SCH (12:05)
--- NOTE | 2024-06-19 12:40 | PCN ---
PROCEDURE NOTE CARDIOVERSION NOTE: INDICATIONS: Atrial flutter. PROCEDURE: After obtaining informed consent, the patient underwent cardioversion with 150 joules of synchronized DC current, converted to sinus rhythm following a single shock. He is adequately anticoagulated with Eliquis and an intracardiac thrombus had been ruled out by GET. REGLA / NADEGE: [id number] /
--- NOTE | 2024-06-19 12:41 | P.PN ---
Progress Note - Text Recommend LifeVest at the time of start secondary to cardiomyopathy with ejection fraction of 30% to prevent sudden cardiac
[2024-06-19 16:11] VITALS: RESP 18; TEMP 97.7
[2024-06-19 16:16] VITALS: BP 105/72; PULSE 63
--- NOTE | 2024-06-20 00:27 | P.DS ---
Providers Date of admission: 06/18/24 08:32 Attending physician: Jamal Marie Consults: 06/16/24 12:30 Consult Physician Urgent Consulting Provider: [facility] Consult Reason/Comments: New onset atrial flutter Do you want consulting provider notified?: Yes Primary care physician: Blessing Roger Hospital Course: Diagnoses: New onset atrial fibrillation/flutter with rapid ventricular response. Status post cardioversion on 06/18 Acute CHF EF with systolic dysfunction. EF 35 to 40%.. Patient does have trace pleural effusions bilaterally and elevated proBNP level. Hypertension Hyperlipidemia Daily alcohol use Obesity with BMI 38.8 DVT prophylaxis patient is Eliquis. Plan: Patient will be continued on telemonitoring. Heparin drip has been discontinued and patient was started on Eliquis and also started on metoprolol. DC atenolol which she takes at home. Patient is also on lisinopril/hydrochlorothiazide. 2D echocardiogram report as above. Cardiology is planning for GET/cardioversion tomorrow. Started on amiodarone 4 mg twice daily. Continue thiamine and multivitamins and monitor for withdrawal symptoms. Alcohol abstinence has been counseled. Continue to follow closely. Hospital course: Patient is a 69-year-old male with a past medical history of hypertension, hyperlipidemia, prior history of smoking, osteoarthritis and daily alcohol use presents to ER with complaints of shortness of breath. Patient was found to have new onset A-fib and cardiomyopathy 35 to 40% with new mild to moderate murmur. Evaluated by supervisor specialty plant, his heart rate was controlled with Eliquis, amiodarone, metoprolol. He is status post cardioversion yesterday and he tolerates procedure well with successful results. Today no chest pain or dyspnea, heart rate controlled Patient already on anticoagulation Eliquis, I discussed the case with cardiology team with no acute discharge patient on Eliquis so hold aspirin to lower risk of bleeding while continuing on amiodarone taper upon discharge as instructed. Also on metoprolol 50 mg Patient denies any other new complaint and he manage at bedside agreed for a discharge Patient was cleared for discharge by supervisor specialty plant Problems and management plan were discussed with the patient and he verbalized understanding and acceptance Patient was found stable and can be discharged home in guarded prognosis however he needs follow-up as an outpatient. Patient was instructed to follow up with PCP Dr. Roger within one week and patient agrees Patient was instructed to follow-up with supervisor specialty plant Dr. Regan in 1 week after discharge and he agrees. His co-pay for Eliquis is $40 per month for which he agrees. I asked the bedside nurse to give the patient the coupon of 1 month free supply of Eliquis LifeVest was delivered at bedside Eliquis was delivered at bedside I discussed the case with supervisor specialty plant who recommended to discontinue aspirin since he was started on Eliquis to decrease risk of bleeding. Also they recommend to taper amiodarone upon discharge, Please refer to discharge instructions Physical exam Gen: patient is a AAOx3, no distress CVS: S1-S2, RRR, no murmur Lungs: B/L CTA, no wheezing Abdomen: soft, no distention, no tenderness, positive bowel sounds Extremity: no leg edema or induration Time spent more than 35 minutes Plan - Discharge Summary Discharge Rx Participant: No New Discharge Prescriptions: New Apixaban [Eliquis] 5 mg PO BID 30 Days #60 tab Metoprolol Tartrate [Lopressor] 50 mg PO BID #60 tab Amiodarone [Cordarone] 400 mg PO BID #60 tab Continue Multivitamin [Men's Multi-Vitamin] 1 tab PO DAILY Rosuvastatin [Crestor] 10 mg PO HS Losartan/Hydrochlorothiazide [Losartan-Hctz 100-25 mg Tab] 1 tab PO DAILY Biotin 1,000 Mcg 1,000 mcg PO DAILY Garlic 1,000 mg PO DAILY Discontinued Aspirin 81 mg PO DAILY atenoloL [Tenormin] 25 mg PO BID Discharge Medication List Multivitamin [Men's Multi-Vitamin] 1 tab PO DAILY 12/11/16 [History] Losartan/Hydrochlorothiazide [Losartan-Hctz 100-25 mg Tab] 1 tab PO DAILY 09/14/23 [History] Rosuvastatin [Crestor] 10 mg PO HS 09/14/23 [History] Biotin 1,000 Mcg 1,000 mcg PO DAILY 06/16/24 [History] Garlic 1,000 mg PO DAILY 06/16/24 [History] Metoprolol Tartrate [Lopressor] 50 mg PO BID #60 tab 06/17/24 [Rx] Amiodarone [Cordarone] 400 mg PO BID #60 tab 06/19/24 [Rx] Apixaban [Eliquis] 5 mg PO BID 30 Days #60 tab 06/19/24 [Rx] Follow up Appointment(s)/Referral(s): Blessing Roger MD [Primary Care Provider] - 1-2 days James Cheema MD [STAFF PHYSICIAN] - 1 Week Patient Instructions/Handouts: Atrial Flutter (DC), Cardioversion (DC) Discharge Disposition: HOME SELF-CARE
== END 2024-06-19 18:05 | disposition home or self-care (01) | DRG 308 ==
LOC: EC 09:25 → 6NMEDSUR 12:30 → OBSVTOIN 06-18 08:32
PROVIDERS: ADMIT Internal Medicine; ATTEND Internal Medicine
PROC: B24BZZ4 Ultrasonography of Heart with Aorta, Transesophageal (ICD-10-PCS; 2024-06-19)
PROC: 5A2204Z Restoration of Cardiac Rhythm, Single (ICD-10-PCS; principal; 2024-06-19 10:30)
DX: I48.3 Typical atrial flutter (principal); I50.23 Acute on chronic systolic (congestive) heart failure; E78.5 Hyperlipidemia, unspecified; Z87.891 Personal history of nicotine dependence; E66.9 Obesity, unspecified; Z68.38 Body mass index [BMI] 38.0-38.9, adult; I11.0 Hypertensive heart disease with heart failure; I48.91 Unspecified atrial fibrillation; I42.8 Other cardiomyopathies; Z79.82 Long term (current) use of aspirin; Z79.899 Other long term (current) drug therapy
CPT/HCPCS: 36415; 70450; 71046; 71275; 80048; 80053; 80061; 83605; 83735; 83880; 84443; 84484; 85025; 85379; 85610; 85730; 92960; 93005; 93306; 93312; 93320; 93325; 96365; 96366; 99291

== ENCOUNTER 2024-08-06 12:27 | Day surgery (SDC) | payer MEDICARE, OTHER ==
[2024-08-02 11:57] VITALS: BMI 36.3
[2024-08-06 13:42] VITALS: RESP 16
[2024-08-06] MEDS: SODIUM CHLORIDE 0.9% 1,000 ML IV SCH (13:44)
[2024-08-06 13:48] LABS: Basophils % (A) 0 %; Eosinophils # (A) 0.2 k/uL (0-0.7); Eosinophils % (A) 2 %; HCT 46.1 % (39.0-53.0); HGB 15.2 gm/dL (13.0-17.5); Lymphocytes # (A) 2.4 k/uL (1.0-4.8); Lymphocytes % (A) 27 %; MCH 29.8 pg (25.0-35.0); MCHC 33.1 g/dL (31.0-37.0); MCV 90.3 fL (80.0-100.0); Mean Platelet Volume 7.6; Monocytes # (A) 0.4 k/uL (0-1.0); Monocytes % (A) 5 %; Neutrophils # (A) 5.6 k/uL (1.3-7.7); Neutrophils % (A) 64 %; Platelet Count 198 k/uL (150-450); RBC 5.11 m/uL (4.30-5.90); RDW 12.1 % (11.5-15.5); WBC 8.7 k/uL (3.8-10.6)
[2024-08-06 14:04] LABS: ALT 20 U/L (4-49); AST 21 U/L (17-59); African American GFR (CKD) >90 (>60 ml/min/1.73 sqM); Albumin 4.4 g/dL (3.5-5.0); Alkaline Phosphatase 71 U/L (38-126); Anion Gap 8 mmol/L; Blood Urea Nitrogen 20 mg/dL (9-20); Calcium 9.2 mg/dL (8.4-10.2); Carbon Dioxide 28 mmol/L (22-30); Chloride 101 mmol/L (98-107); Glucose 92 mg/dL (74-99); Non-African American GFR(CKD) 80 (>60 ml/min/1.73 sqM); Potassium 4.1 mmol/L (3.5-5.1); Sodium 137 mmol/L (137-145); Total Bilirubin 0.7 mg/dL (0.2-1.3); Total Protein 7.7 g/dL (6.3-8.2)
[2024-08-06] MEDS ORDERED: ONDANSETRON 4 MG/2 ML VIAL ONE (15:45)
[2024-08-06] MEDS ORDERED: ROCURONIUM 10 MG/ML (5 ML VIAL) IV ONE (15:45)
[2024-08-06] MEDS ORDERED: PHENYLEPHRINE-0.9% NACL SYG 1,000 MCG/10 ML SYRINGE ONE (15:45)
[2024-08-06] MEDS ORDERED: SUCCINYLCHOLINE CHLORIDE 200 MG/10 ML VIAL IV ONE (15:45)
[2024-08-06] MEDS ORDERED: PROPOFOL 10 MG/ML 20 ML VIAL IV ONE (15:45)
[2024-08-06] MEDS ORDERED: MIDAZOLAM 2 MG/2 ML VIAL ONE (15:45)
[2024-08-06] MEDS ORDERED: ISOPROTERENOL 250 MCG/1.25 ML SYR IV ONE (15:45)
[2024-08-06] MEDS: IV FLUID CONTINUATION 1,000 ML IV ONE (15:45)
[2024-08-06] MEDS ORDERED: LIDOCAINE 1% INJ 10MG/ML (20 ML MDV) ONE (15:45)
[2024-08-06] MEDS ORDERED: GLYCOPYRROLATE 0.2 MG/ML 2 ML VIAL ONE (15:45)
[2024-08-06] MEDS ORDERED: fentaNYL (PF) 50 MCG/ML 2 ML AMP ONE (15:45)
[2024-08-06] MEDS ORDERED: NEOSTIGMINE 1 MG/ML 10 ML VIAL ONE (15:45)
[2024-08-06] MEDS ORDERED: ePHEDrine 50 MG/ML 1 ML VIAL ONE (15:45)
[2024-08-06] MEDS: LIDOCAINE 1% INJ 10MG/ML (20 ML MDV) SQ ONE (16:18)
[2024-08-06] MEDS: HEPARIN SODIUM (1,000 UNIT/ML) 1,000 UNIT in SODIUM CHLORIDE 0.9% 1,000 ML IRRIGATION ONE (16:40)
[2024-08-06] MEDS ORDERED: ACETAMINOPHEN TAB 325 MG TAB PO PRN (17:56)
--- NOTE | 2024-08-06 18:14 | P.HPCAR ---
History of Present Illness This is Dr. Hall dictating an H/P on this patient The patient was interviewed and examined IMPRESSION / ASSESSMENT: Typical atrial flutter with RVR Cardiomyopathy with severe LV dysfunction Congestive heart failure Initially treated with amiodarone and underwent electrical cardioversion Right bundle branch block pattern on twelve-lead EKG PLAN: Diagnose EP study and radiofrequency ablation for typical atrial flutter Follow-up assessment of LV function Continue heart failure medications and continue Eliquis HPI Patient denied any dizziness lightheadedness shortness of breath palpitations. No fever chills cough expectoration No syncope ROS: No fever chills or rigors, no cough, phlegm or expectoration, no nausea, vomiting or diarrhea, no hematuria, dysuria, no musculoskeletal complaints, no strokes or seizures, no skin lesions. EXAMINATION: Pulse rate 58 beats a minute normal respirations no orthopnea Blood pressure 106/59 mmHg afebrile Breath sounds are normal no rhonchi no crackles Heart sounds S1-S2 normal No lower extremity edema REVIEW OF LABS, ECG & MEDICAL DATA White count 8.7 thousand, hemoglobin 15.2 platelet count 298,000 Electrolytes normal sodium 137 potassium 4.1 BUN 20 creatinine 0.983 TSH 0.98 LFTs normal Physical Exam Vitals: Vital Signs Temp Pulse Resp BP Pulse Ox 08/06/24 13:40 98.8 F 58 L 16 106/59 98 Intake and Output 08/06/24 08/06/24 08/06/24 06:59 14:59 22:59 Intake Total 972 Balance 972 Intake: IV 972 Other: Weight 146.6 kg Past Medical History Past Medical History: Atrial Fibrillation, Hyperlipidemia, Hypertension Additional Past Medical History / Comment(s): colonoscopy History of Any Multi-Drug Resistant Organisms: None Reported Past Surgical History: Orthopedic Surgery Additional Past Surgical History / Comment(s): rt knee SX in 1976; colonoscopy 2013, Past Anesthesia/Blood Transfusion Reactions: No Reported Reaction Additional Past Anesthesia/Blood Transfusion Reaction / Comment(s): no blood transfusion Smoking Status: Former smoker - Past Family History Mother Family Medical History: Cancer Additional Family Medical History / Comment(s): cdiff, breast cancer, CABG 1999, septic shock, Father Family Medical History: AFIB, AICD/Pacemaker Additional Family Medical History / Comment(s): mac degeneration Physical Examination Vital Signs Temp Pulse Resp BP Pulse Ox 08/06/24 13:40 98.8 F 58 L 16 106/59 98 Intake and Output 08/06/24 08/06/24 08/06/24 06:59 14:59 22:59 Intake Total 972 Balance 972 Intake: IV 972 Other: Weight 146.6 kg Results 08/06/24 13:35 08/06/24 13:35 Cardiac Enzymes 08/06/24 Range/Units 13:35 AST 21 (17-59) U/L CBC 08/06/24 Range/Units 13:35 WBC 8.7 (3.8-10.6) k/uL RBC 5.11 (4.30-5.90) m/uL Hgb 15.2 (13.0-17.5) gm/dL Hct 46.1 (39.0-53.0) % Plt Count 198 (150-450) k/uL Comprehensive Metabolic Panel 08/06/24 Range/Units 13:35 Sodium 137 (137-145) mmol/L Potassium 4.1 (3.5-5.1) mmol/L Chloride 101 (98-107) mmol/L Carbon Dioxide 28 (22-30) mmol/L BUN 20 (9-20) mg/dL Creatinine 0.98 (0.66-1.25) mg/dL Glucose 92 (74-99) mg/dL Calcium 9.2 (8.4-10.2) mg/dL AST 21 (17-59) U/L ALT 20 (4-49) U/L Alkaline Phosphatase 71 (38-126) U/L Total Protein 7.7 (6.3-8.2) g/dL Albumin 4.4 (3.5-5.0) g/dL Current Medications Generic Name Dose Route Start Last Admin Trade Name Freq PRN Reason Stop Dose Admin Acetaminophen 650 mg 08/06/24 17:56 Acetaminophen Tab 325 Mg Tab PO 09/05/24 17:55 Q6HR PRN Mild Pain (Scale 1 to 3) Apixaban 5 mg 08/06/24 21:00 Apixaban 5 Mg Tab PO 09/05/24 20:59 BID [facility] Protocol Metoprolol Tartrate 50 mg 08/06/24 21:00 Metoprolol Tartrate 50 Mg Tab PO 09/05/24 20:59 BID [facility] Non-Formulary Medication 10 mg 08/07/24 09:00 Empagliflozin [Jardiance] PO 09/06/24 08:59 DAILY [facility]AN Non-Formulary Medication 1 tab 08/07/24 09:00 Losartan/Hydrochlorothiazide [Losartan-Hctz 100-25 Mg Tab] PO 09/06/24 08:59 DAILY [facility] Non-Formulary Medication 10 mg 08/06/24 21:00 Rosuvastatin PO 09/05/24 20:59 HS BAN Sodium Chloride 12 ml 08/06/24 17:56 Sodium Chloride 0.9% Flush 10 Ml Syringe IV 09/05/24 17:55 Q12HR PRN Line Flush Intake and Output 08/06/24 08/06/24 08/06/24 06:59 14:59 22:59 Intake Total 972 Balance 972 Intake: IV 972 Other: Weight 146.6 kg Patient Weight 08/07/24 06:59 Weight 146.6 kg 08/06/24 13:35 08/06/24 13:35
[2024-08-06] MEDS: LACTATED RINGERS 1,000 ML IV SCH (19:36)
[2024-08-06] MEDS: METOPROLOL TARTRATE 50 MG TAB PO SCH (22:00)
[2024-08-06] MEDS: ATORVASTATIN 20 MG TAB PO SCH (22:00)
[2024-08-06] MEDS: APIXABAN 5 MG TAB PO SCH (22:00)
[2024-08-06] MEDS: ACETAMINOPHEN IV (For NPO) 1,000 MG in EMPTY BAG 1 BAG IVPB ONE (22:01)
[2024-08-07 03:23] VITALS: PULSE 57
[2024-08-07 07:39] VITALS: BP 107/68; TEMP 98
[2024-08-07] MEDS: LOSARTAN-HCTZ 50-12.5 MG 1 EACH TAB PO SCH (08:46)
[2024-08-07] MEDS: DAPAGLIFLOZIN PROPANEDIOL 5 MG TABLET PO SCH (08:47)
--- NOTE | 2024-08-08 14:43 | P.EPPROC ---
- EP Procedure Note Electrophysiology Procedure Note: Diagnosis Congestive heart failure cardiomyopathy typical atrial flutter with RVR treated with oral amiodarone and electrical cardioversion Amiodarone was discontinued 4 weeks back in preparation for typical atrial flutter ablation. Patient on Eliquis Final diagnosis Successful ablation of typical atrial flutter with confirmed bidirectional block. Isthmus conduction time greater than 180 ms Normal AH and HV interval, mildly prolonged TX interval right bundle branch block pattern Evidence of slow pathway conduction without induction of AV trudi reentry Inducible organized atrial fibrillation and atrial tachycardia but nonsustained lasting less than 30 seconds, on Isopril Details Patient was brought to the EP lab in a fasting state. Written informed consent was obtained prior to the procedure. General anesthesia provided. Venous sheaths were placed in the right left femoral veins. Coronary sinus catheter placed in the coronary sinus. Catheters placed in the high right atrium His bundle area Sinus cycle length 1015 ms, TX interval 209 ms, QRS right bundle branch block pattern, 181 ms and QT interval 495 ms AH 82 ms and HV interval 48 Sinus node recovery times were 1331 ms, 1372 ms and 1381 ms Corresponding corrected sinus node recovery times were normal AV node Wenckebach block 390 ms Antegrade slow pathway conduction at 430 ms On Isopril AV node ERP 500\less than 240 ms Atrial fibrillation was induced/organized atrial tachycardia with a tachycardia cycle length of 264 ms. Spontaneous termination in less than 30 seconds On high-dose Isopril atrial fibrillation/organized atrial tachycardia of varying activation patterns induced. Short bursts noted on Isopril but did settle down once Isopril was stopped 3D electroanatomic mapping was performed Intracardiac echo revealed thickened pericardium and improvement in LV systolic function, no left atrial appendage thrombus Isthmus was mapped His bundle identified, tricuspid annulus and eustachian ridge identified. RF ablation was performed from the tricuspid valve to the eustachian ridge. A complete line of block was made. No anatomic gaps noted Differential pacing revealed bidirectional block across the isthmus. Isthmus conduction time 180 ms All sheaths were removed and Vascade closure device used for hemostasis Patient tolerated procedure well without any acute complications
--- NOTE | 2024-08-08 19:32 | P.DS ---
Providers Attending physician: Jonathan Hall Primary care physician: Blessing Kana [facility] Course: Patient is doing well. He underwent ablation for typical atrial flutter which had provoked cardiomyopathy. Amiodarone has already been discontinued for about a month He is doing well no chest discomfort dizziness lightheadedness. Groins have healed well no hematoma no swelling 2-lead EKG is normal He maintains sinus rhythm On examination blood pressure 107/68 mmHg pulse rate in the 50s and 60s Heart sounds are normal Breath sounds are clear Impression typical atrial flutter with RVR Nonischemic cardiomyopathy related to atrial flutter and regular alcohol use Patient has stopped alcohol consumption for the last several months Plan Discharge home Continue anticoagulation Continue Eliquis losartan hydrochlorothiazide metoprolol rosuvastatin and Jardiance Follow Dr. Hall in 1 to 2 weeks Follow-up 2D echo and Doppler study to assess cardiac structure and function for about 6 to 8 weeks Plan - Discharge Summary Discharge Rx Participant: No New Discharge Prescriptions: No Action Multivitamin [Men's Multi-Vitamin] 1 tab PO DAILY Apixaban [Eliquis] 5 mg PO BID 30 Days #60 tab Rosuvastatin [Crestor] 10 mg PO HS Losartan/Hydrochlorothiazide [Losartan-Hctz 100-25 mg Tab] 1 tab PO DAILY Garlic 1,000 mg PO DAILY Metoprolol Tartrate [Lopressor] 50 mg PO BID #60 tab Empagliflozin [Jardiance] 10 mg PO DAILY Discharge Medication List Multivitamin [Men's Multi-Vitamin] 1 tab PO DAILY 12/11/16 [History] Losartan/Hydrochlorothiazide [Losartan-Hctz 100-25 mg Tab] 1 tab PO DAILY 09/14/23 [History] Rosuvastatin [Crestor] 10 mg PO HS 09/14/23 [History] Garlic 1,000 mg PO DAILY 06/16/24 [History] Metoprolol Tartrate [Lopressor] 50 mg PO BID #60 tab 06/17/24 [Rx] Apixaban [Eliquis] 5 mg PO BID 30 Days #60 tab 06/19/24 [Rx] Empagliflozin [Jardiance] 10 mg PO DAILY 08/02/24 [History] Follow up Appointment(s)/Referral(s): Jonathan Hall MD [STAFF PHYSICIAN] - 08/14/24 11:30 am Patient Instructions/Handouts: Atrial Flutter (DC), Electrophysiology Study (DC) Activity/Diet/Wound Care/Special Instructions: Post EP study - Ablation instructions 1. Keep access sites dry for 2 days. 2. No heavy lifting or straining for 2 days. 3. Avoid bending the hips repeatedly for 2 days. 4. You may go up and down stairs slowly 5. If you have had an ablation for atrial fibrillation or atrial flutter and are on a blood thinner, do not stop the blood thinner even temporarily for 3 months post ablation Call if the following is noted 1. Bleeding, increasing swelling or pain at the access sites. 2. Increasing chest discomfort, especially upon taking a deep breath. 3. Increasing shortness of breath, at rest or with exertion. 4. Undue cough / phlegm 5. Difficulty or pain while swallowing. 6. Pain or change in color in the extremities. 7. Fever, chills, rigors. 8. Increasing headache or neurologic symptoms. 9. Dizziness, fainting, palpitations Continue Eliquis No amiodarone Continue all other medication Discharge Disposition: HOME SELF-CARE
== END 2024-08-07 10:58 | disposition home or self-care (01) ==
LOC: CATHEP 12:27 → 6NMEDSUR 17:52 → CATHEP 08-07 10:58
PROVIDERS: ATTEND Internal Medicine Clinical Cardiac Electrophysiology
DX: I48.92 Unspecified atrial flutter (principal)
CPT/HCPCS: 93623; 93662; 93653; 86900; 86901; 80053; 84443; 85025; 86850; C1759; C1894; C1769; C1760; C1766; C1730; C1732; J2250; J0330; J2710; J2405; J2003; J3010; J1644; J0131; J2704; J2371; J1596

== ENCOUNTER → 2024-10-10 | Outpatient (CLI) | payer OTHER ==
[2024-10-10 14:45] VITALS: BP 133/81; PULSE 60; RESP 16; TEMP 97.2
--- NOTE | 2024-10-10 15:19 | P.SLEEP ---
History of Present Illness DATE: 10/10/2024 CONSULTATION/NEW PATIENT EVALUATION HISTORY OF PRESENT ILLNESS/SLEEP-WAKE EVALUATION: 69-year-old gentleman had been evaluated in the sleep center for possible obstructive sleep apnea hypopnea syndrome. SLEEP SCHEDULE: Usually sleep schedule from 7 PM to 4 AM 7 days a week. FALLING ASLEEP: No problems with falling asleep. DURING SLEEP: Patient snores, positive history of witnessed episodes of stop breathing during the sleep. No history of hypnogogical hallucinations, sleep paralysis, or cataplexy. DURING THE DAY/WAKE STATE: Occasional sleepiness during the day. [place] sleepiness scale is 7. Patient may take up to 2 naps during the day late afternoon. PAST MEDICAL HISTORY: Hypertension, atrial fibrillation converted to normal sinus rhythm by cardiac ablation, hyperlipidemia. PAST SURGICAL HISTORY: Cardiac ablation. MEDICATIONS: Please see below. SOCIAL HISTORY: Please see below. FAMILY HISTORY: Please see below. REVIEW OF SYSTEMS: Snoring, awakenings from sleep. No fevers. No double vision. No recent chest pain. No shortness of breath. No abdominal pain. No bleeding episodes. No blood in urine. No seizure episodes. PHYSICAL EXAMINATION: GENERAL: A pleasant patient without any distress. VITAL SIGNS: Please see below, weight 326 pounds, BMI 40.2. HEENT: PERRLA, EOMI. Evaluation of oropharynx showed tongue protrudes midline, low position of soft palate Mallampati 3. NECK: Supple. No JVD. Thyroid is not palpable. 18.5 inches in circumference. LUNGS: Clear to percussion and to auscultation. Good air exchange. No wheezing or rhonchi. HEART: S1, S2 regular. No murmurs, gallops or rubs. ABDOMEN: Soft and nontender. Bowel sounds are present. No organomegaly apprecia therese. EXTREMITIES: No clubbing or cyanosis. RELIGIOUS ASSISTANT: Awake, alert, and oriented x3. Cranial nerves 2 to 7 intact. There is no fasciculation or atrophy noted. No focal deficits observed. ASSESSMENT: 1. Snoring, witnessed episodes of stop breathing during the sleep, low position of soft palate Mallampati 3, wide neck 18.5 inches in circumference. Obstructive sleep apnea hypopnea syndrome. 2. Obesity, BMI 40.2. 3. History of atrial fibrillation, status post cardiac ablation. 4. Hypertension. 5 hyperlipidemia. PLAN: 1. Polysomnography for evaluation of patient's breathing during sleep. 2. Following plan after reading sleep study. 3. Preferable position during sleep on the side. 4. No driving if patient feels any sleepiness. Patient is aware of civil and criminal liability for unsafe driving. 5. Sleep hygiene with regular sleep time for at least 7.5-8 hours. 6. Watching and losing weight. Thank you very much for referring this patient for consultation. Sincerely, Manuel Watson MD, PhD, FAASM. Diplomat of [employer], Sleep Medicine Board by [employer] Game Program[employer] [facility] [place] cc: Blessing Roger MD, Jonathan Hall MD Past Medical History Past Medical History: Atrial Fibrillation, Hyperlipidemia, Hypertension Additional Past Medical History / Comment(s): colonoscopy History of Any Multi-Drug Resistant Organisms: None Reported Past Surgical History: Orthopedic Surgery Additional Past Surgical History / Comment(s): rt knee SX in 1976; colonoscopy 2013, Past Anesthesia/Blood Transfusion Reactions: No Reported Reaction Additional Past Anesthesia/Blood Transfusion Reaction / Comment(s): no blood transfusion Past Psychological History: No Psychological Hx Reported Smoking Status: Former smoker Past Alcohol Use History: None Reported Additional Past Alcohol Use History / Comment(s): QUIT SMOKING 45 YRS AGO Past Drug Use History: None Reported - Past Family History Mother Family Medical History: Cancer Additional Family Medical History / Comment(s): cdiff, breast cancer, CABG 1999, septic shock, Father Family Medical History: AFIB, AICD/Pacemaker Additional Family Medical History / Comment(s): mac degeneration Medications and Allergies Home Medications Medication Instructions Recorded Confirmed Type Multivitamin [Men's Multi-Vitamin] 1 tab PO DAILY 12/11/16 10/10/24 History Losartan/Hydrochlorothiazide 1 tab PO DAILY 09/14/23 10/10/24 History [Losartan-Hctz 100-25 mg Tab] Rosuvastatin [Crestor] 10 mg PO HS 09/14/23 10/10/24 History Garlic 1,000 mg PO DAILY 06/16/24 10/10/24 History Metoprolol Tartrate [Lopressor] 50 mg PO BID #60 tab 06/17/24 10/10/24 Rx Apixaban [Eliquis] 5 mg PO BID 30 Days #60 tab 06/19/24 10/10/24 Rx Empagliflozin [Jardiance] 10 mg PO DAILY 08/02/24 10/10/24 History Allergies Allergy/AdvReac Type Severity Reaction Status Date / Time No Known Allergies Allergy Verified 08/02/24 11:47 Physical Exam Vitals: Vital Signs Temp Pulse Resp BP Pulse Ox 10/10/24 14:44 97.2 F L 60 16 133/81 99 Intake and Output 10/10/24 10/10/24 10/10/24 06:59 14:59 22:59 Other: Weight 147.871 kg Sleep Note - Sleep Data ESS Total: 7 - Sleep Note Sleep Note: Temperature: 97.2 F Pulse Rate: 60 Respiratory Rate: 16 Blood Pressure: 133/81 SpO2: 99 Height: 6 ft 3.5 in Weight: 147.871 kg BMI: Neck Circumference: 18.5
== END ==
LOC: 3 N SLEEP 13:52
PROVIDERS: ATTEND Internal Medicine
DX: G47.33 Obstructive sleep apnea (adult) (pediatric) (principal); I10 Essential (primary) hypertension; E78.5 Hyperlipidemia, unspecified; I48.91 Unspecified atrial fibrillation; E66.01 Morbid (severe) obesity due to excess calories; Z68.41 Body mass index [BMI] 40.0-44.9, adult; Z48.812 Encounter for surgical aftercare following surgery on the circulatory system
CPT/HCPCS: 99211

== ENCOUNTER → 2024-12-11 | Outpatient (CLI) | payer OTHER ==
--- NOTE | 2024-12-11 14:31 | US ---
EXAMINATION TYPE: US kidneys/renal and bladder DATE OF EXAM: 12/11/2024 COMPARISON: NONE CLINICAL INDICATION: Male, 69 years old with history of R31.9 hematuria; Patient had hematuria Monday , nothing since then, has resolved TECHNIQUE: Grayscale imaging of the bilateral kidneys and urinary bladder: FINDINGS: EXAM MEASUREMENTS: Right Kidney: 12.0 x 5.7 x 6.4 cm Left Kidney: 13.1 x 5.6 x 6.7 cm Exam is limited. Right Kidney: No hydronephrosis or masses seen Left Kidney: No hydronephrosis or masses identified. Bladder: Appears wnl Bilateral Jets seen: Yes IMPRESSION: No evidence for obstructive uropathy. [facility], , 12/11/2024 2:29 PM
== END | disposition home or self-care (01) ==
LOC: RADUSWWP 13:41
PROVIDERS: ATTEND Internal Medicine
DX: R31.9 Hematuria, unspecified (principal)
CPT/HCPCS: 76770

== ENCOUNTER → 2024-12-17 | Outpatient (CLI) | payer OTHER ==
--- NOTE | 2024-12-18 17:17 | P.PCN ---
Description of Procedure: CLINICAL: A home sleep apnea test has been done for confirmation of possible obstructive sleep apnea-hypopnea syndrome. DESCRIPTION OF PROCEDURE: RESULTS: Patient returned home sleep apnea test equipment, but no data was recorded. PLAN: 1. Repeat home sleep apnea test. 2. Following plan after reading sleep test. 3. Watching and losing weight. 4. Sleep hygiene with regular time in bed for at least 8 hours. 5. No driving if feeling any sleepiness. Thank you very much for allowing me to participate in the management of your patient. Sincerely, Manuel Watson MD, PhD, FAASM Diplomat of [employer] Sleep Medicine Board of [employer] Hand Loom Weaver [facility] [place]
== END ==
LOC: 3 N SLEEP 16:20
PROVIDERS: ATTEND Internal Medicine
DX: G47.30 Sleep apnea, unspecified (principal)

== ENCOUNTER → 2025-01-08 | Outpatient (CLI) | payer MEDICARE, OTHER ==
--- NOTE | 2025-01-09 11:11 | P.PCN ---
Description of Procedure: CLINICAL: A home sleep apnea test has been done for confirmation of possible obstructive sleep apnea-hypopnea syndrome. DESCRIPTION OF PROCEDURE: RESULTS: Recording time was 7 hours 5 minutes. Evaluation time was 6 hours 52 minutes. Evaluation time is sufficient for making conclusion about results of the test. Raw data of sleep recording has been reviewed and is adequate. Respiratory channel showed 121 apneas and 144 hypopneas. Apnea-hypopnea index was 38.6 per hour. Pulse rate in the range between minimum 49, maximum 141, average 63 by computer calculation. Lowest desaturation was 74%. IMPRESSION: 1. Obstructive Sleep Apnea Hypopnea Syndrome in severe range. Please see other impressions from consultation. PLAN: 1.The patient should have PAP titration for correction of respiratory abnormallities during sleep. 2. I will see patient for follow up visit to discuss results of the test, evaluate clinical response on treatment with PAP therapy and make any necessary adjustments related to mask fitting, pressure, and humidification. 3. Watching and losing weight. 4. Sleep hygiene with regular time in bed for at least 8 hours. 5. No driving if feeling any sleepiness. Thank you very much for allowing me to participate in the management of your patient. Sincerely, Manuel Watson MD, PhD, FAASM Diplomat of [employer] Sleep Medicine Board of [employer] Tractor Sweeper Operator [facility] [place] cc: Blessing Roger MD
== END ==
LOC: 3 N SLEEP 10:46
PROVIDERS: ATTEND Internal Medicine
DX: G47.33 Obstructive sleep apnea (adult) (pediatric) (principal)

== ENCOUNTER → 2025-04-01 | Outpatient (CLI) | payer OTHER ==
[2025-04-01 13:57] LABS: African American GFR (CKD) >90 (>60 ml/min/1.73 sqM); Blood Urea Nitrogen 18 mg/dL (9-20); Non-African American GFR(CKD) 89 (>60 ml/min/1.73 sqM)
--- NOTE | 2025-04-01 15:59 | CT ---
EXAMINATION TYPE: CT urogram wo/w con CT DLP: 8993.4 mGycm, Automated exposure control for dose reduction was used. DATE OF EXAM: 04/01/2025 3:15 PM COMPARISON: Renal ultrasound 12/11/2024 CLINICAL INDICATION:Male, 70 years old with history of R31.0 HEMATURIA; PHH, Hematuria TECHNIQUE: Urogram of the abdomen and pelvis was performed before and after the administration of 100 cc of IV c ontrast Isovue 300 contrast. Delayed imaging was performed. Coronal and sagittal reformats were perfo rmed. One or more CT dose reduction strategies were utilized during this examination. 2D and 3D recon structions are performed to assist visualization of the urinary tract on a separate workstation. FINDINGS: GENITOURINARY: RIGHT KIDNEY AND URETER: No calculi. No hydronephrosis or hydroureter. No renal mass or other lesions . No urothelial lesions: no filling defect, dilation, stricture or wall thickening. LEFT KIDNEY AND URETER: No calculi. No hydronephrosis or hydroureter. No suspicious enhancing renal m ass. Upper pole cortical 1.1 cm simple cyst. Anterior left mid kidney 2.3 cm simple cyst. No urotheli al lesions: no filling defect, dilation, stricture or wall thickening. URINARY BLADDER: Mildly well distended. Normal, no calculi, mass or other lesions. REPRODUCTIVE: Prostate gland is not enlarged however there is some median lobe hypertrophy which inde nts upon the urinary bladder base. ABDOMEN LIVER: Unremarkable. GALLBLADDER AND BILE DUCTS: Unremarkable PANCREAS: Unremarkable. SPLEEN: Unremarkable. ADRENAL GLANDS: Unremarkable. STOMACH AND BOWEL: Distal colonic diverticulosis without evidence for acute diverticulitis. No focal bowel wall thickening or surrounding inflammatory changes. The appendix is within normal limits.. No evidence of bowel obstruction. PERITONEUM: No evidence of pneumoperitoneum, free fluid, or adenopathy. VASCULATURE: No aortic aneurysm. MUSCULOSKELETAL: No acute osseous abnormalities. Multilevel anterior osteophytosis of the lower thora cic spine. Minimal grade 1 anterolisthesis at L4-L5 without evidence of pars defects. Bilateral lower lumbar spine facet arthropathy. Degenerative disc disease at L5-S1. SOFT TISSUE/ABDOMINAL WALL: Unremarkable. LOWER CHEST: No significant findings. IMPRESSION: 1. No evidence of urolithiasis or suspicious enhancing renal/urothelial neoplasm. Couple of simple le ft renal cysts. No follow-up recommended for the cysts. 2. Colonic diverticulosis without evidence for acute diverticulitis. [facility], , 04/01/2025 3:57 PM
== END | disposition home or self-care (01) ==
LOC: RADCTMAIN 13:00
PROVIDERS: ATTEND Urology
DX: N28.1 Cyst of kidney, acquired (principal); K57.30 Diverticulosis of large intestine without perforation or abscess without bleeding; R31.0 Gross hematuria
CPT/HCPCS: 82565; 84520; 74178; 36415; 74400; Q9967